=== PATIENT | female | born 1970 | race Caucasian/White ===

== ENCOUNTER 2016-04-22 10:25 | Emergency (ER) | payer MEDICARE, MEDICAID ==
[2016-04-22] MEDS ORDERED: OXYCODONE-ACETAMINOPHEN 5-325 MG TABLET PO ONE (10:39)
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
[2016-04-22] MEDS ORDERED: IBUPROFEN 600 MG TABLET PO ONE (11:13)
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
[2016-04-22 11:26] VITALS: BP 132/72
== END 2016-04-22 11:23 | disposition home or self-care (01) ==
LOC: ER 10:25
DX: T20.07XA Burn of unspecified degree of neck, initial encounter (principal); T23.091A Burn of unspecified degree of multiple sites of right wrist and hand, initial encounter; T31.0 Burns involving less than 10% of body surface; X12.XXXA Contact with other hot fluids, initial encounter; I10 Essential (primary) hypertension; Z88.0 Allergy status to penicillin; Z88.1 Allergy status to other antibiotic agents
CPT/HCPCS: 99283; A9270 ×2

== ENCOUNTER 2016-04-28 07:40 | Emergency (ER) | payer MEDICARE, MEDICAID ==
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
[2016-04-28 09:23] VITALS: BP 120/85
== END 2016-04-28 09:10 | disposition home or self-care (01) ==
LOC: ER 07:40
DX: T23.072A Burn of unspecified degree of left wrist, initial encounter (principal); T51.1X1A Toxic effect of methanol, accidental (unintentional), initial encounter; E78.00 Pure hypercholesterolemia, unspecified
CPT/HCPCS: 99283

== ENCOUNTER → 2016-05-20 | Outpatient (CLI) | payer MEDICARE, MEDICAID ==
[2016-05-20 13:00] LABS: HEMATOCRIT 49.6 % (36.0-47.0); HEMOGLOBIN 16.8 g/dL (12.0-15.5); HGB HCT DIFFERENCE 0.8; MEAN CORPUSCULAR HEMOGLOBIN 31.5 pg (27.0-33.4); MEAN CORPUSCULAR HGB CONC 33.9 g/dL (32.0-36.0); MEAN CORPUSCULAR VOLUME 93 fl (80-97); RED BLOOD COUNT 5.32 10^6/uL (3.72-5.28); RED CELL DISTRIBUTION WIDTH 14.3 % (11.5-14.0); WHITE BLOOD COUNT 6.4 10^3/uL (4.0-10.5)
[2016-05-20 13:50] LABS: CHOLESTEROL 399.7 mg/dL (0-200)
[2016-05-21 09:26] LABS: ALANINE AMINOTRANSFERASE 28 U/L (9-52); ALBUMIN 4.7 g/dL (3.5-5.0); ALKALINE PHOSPHATASE 79 U/L (38-126); ANION GAP 15 (5-19); ASPARTATE AMINO TRANSFERASE 29 U/L (14-36); BILIRUBIN,TOTAL 0.8 mg/dL (0.2-1.3); BLOOD UREA NITROGEN 13 mg/dL (7-20); CALCIUM 9.9 mg/dL (8.4-10.2); CARBON DIOXIDE 22 mmol/L (22-30); CHLORIDE 106 mmol/L (98-107); CREATININE RESULT 0.74 mg/dL (0.52-1.25); GLUCOSE 85 mg/dL (75-110); POTASSIUM 4.3 mmol/L (3.6-5.0); SODIUM 142.9 mmol/L (137-145)
== END ==
LOC: OD 11:49
PROVIDERS: ATTEND Psychiatry & Neurology Psychiatry
DX: F33.2 Major depressive disorder, recurrent severe without psychotic features (principal); Z79.899 Other long term (current) drug therapy
CPT/HCPCS: 36415; 80048; 80076; 82465; 83036; 83721; 84439; 84443; 84478; 85027

== ENCOUNTER 2017-01-22 12:13 | Emergency (ER) | payer MEDICARE, MEDICAID ==
[2017-01-22 12:19] VITALS: BP 138/85
[2017-01-22 13:02] LABS: ABSOLUTE EOSINOPHILS # (AUTO) 0.2 10^3/uL (0.0-0.6); ABSOLUTE MONOCYTES (AUTO) 0.4 10^3/uL (0.1-1.4); ABSOLUTE NEUT (AUTO) 5.3 10^3/uL (1.7-8.2); BASOPHILS % (AUTO) 0.4 % (0-2); EOSINOPHILS % (AUTO) 1.9 % (0-6); HEMATOCRIT 40.9 % (36.0-47.0); HEMOGLOBIN 13.8 g/dL (12.0-15.5); HGB HCT DIFFERENCE 0.5; LYMPHOCYTES % (AUTO) 25.1 % (13-45); MEAN CORPUSCULAR HEMOGLOBIN 31.8 pg (27.0-33.4); MEAN CORPUSCULAR HGB CONC 33.8 g/dL (32.0-36.0); MEAN CORPUSCULAR VOLUME 94 fl (80-97); MONOCYTES % (AUTO) 5.3 % (3-13); RED BLOOD COUNT 4.35 10^6/uL (3.72-5.28); RED CELL DISTRIBUTION WIDTH 13.5 % (11.5-14.0); SEGMENTED NEUTROPHILS % (AUTO) 67.3 % (42-78); WHITE BLOOD COUNT 7.9 10^3/uL (4.0-10.5)
[2017-01-22 13:04] LABS: PROTHROMBIN TIME 12.7 SEC (11.4-15.4)
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
[2017-01-22 13:12] LABS: ALANINE AMINOTRANSFERASE 38 U/L (9-52); ALKALINE PHOSPHATASE 51 U/L (38-126); ANION GAP 12 (5-19); ASPARTATE AMINO TRANSFERASE 21 U/L (14-36); BILIRUBIN,DIRECT 0.3 mg/dL (0.0-0.4); BILIRUBIN,TOTAL 0.5 mg/dL (0.2-1.3); BLOOD UREA NITROGEN 13 mg/dL (7-20); CALCIUM 9.2 mg/dL (8.4-10.2); CARBON DIOXIDE 26 mmol/L (22-30); CHLORIDE 107 mmol/L (98-107); CREATININE RESULT 0.61 mg/dL (0.52-1.25); GLUCOSE 71 mg/dL (75-110); SODIUM 144.7 mmol/L (137-145); TOTAL PROTEIN 6.5 g/dL (6.3-8.2)
--- NOTE | 2017-01-22 15:37 | RADIOLOGY REPORT (SQ) ---
EXAM DESCRIPTION: VENOUS UNILATERAL LOWER COMPLETED DATE/TIME: 01/22/2017 3:30 pm REASON FOR STUDY: swelling to LLE after 9+ hr drive COMPARISON: None. TECHNIQUE: Dynamic and static castro scale and color images acquired of the left leg venous system. Se lected spectral images acquired with additional compression and augmentation maneuvers. The contralat eral common femoral vein and saphenofemoral junction were also imaged. Images stored on PACS. LIMITATIONS: None. FINDINGS: COMMON FEMORAL: Normal phasicity, compression and augmentation. No visualized echogenic ma terial on castro scale. No defects on color images. FEMORAL: Normal compression and augmentation. No visualized echogenic material on castro scale. No defe cts on color images. POPLITEAL: Normal compression, augmentation. No visualized echogenic material on castro scale. No defec ts on color images. CALF VESSELS: Normal compression, augmentation. No visualized echogenic material on castro scale. No de fects on color images. GSV and SSV: Normal compression, augmentation. No visualized echogenic material on castro scale. No def ects on color images. ANY DEEP VENOUS INSUFFICIENCY: Not evaluated. ANY EVIDENCE OF POPLITEAL CYST: No. OTHER: No other significant finding. CONTRALATERAL COMMON FEMORAL VEIN AND SAPHENOFEMORAL JUNCTION: Normal phasicity, compression and augmentation. No visualized echogenic material on castro scale. No de fects on color images. IMPRESSION: NO EVIDENCE DVT OR SVT IN THE LEFT LEG. TECHNICAL DOCUMENTATION: JOB ID: [id number] [employer]- All Rights Reserved
--- NOTE | 2017-01-22 15:49 | ER Document Report ---
ED General - General Chief Complaint: Leg Pain Stated Complaint: LEFT KNEE PAIN Time Seen by Provider: 01/22/17 12:26 Mode of Arrival: Ambulatory Information source: Patient Notes: 47-year-old female presents with complaints of left knee pain. Patient notes it has been ongoing for a month after stepping wrong and feeling a popping sensation. Patient has intermittently her knee pops out of place. Patient was seeing orthopedics and getting injections as well as physical therapy but she moved here yesterday. Patient noted swelling in the left leg and knee TRAVEL OUTSIDE OF THE [place] IN LAST 30 DAYS: No - HPI Onset: Other Onset/Duration: Persistent, Worse Quality of pain: Achy Severity: Mild Pain Level: 1 Associated symptoms: Body/muscle aches Exacerbated by: Movement Relieved by: Denies Similar symptoms previously: Yes Recently seen / treated by doctor: Yes - Related Data Allergies/Adverse Reactions: Penicillins Allergy (Severe, Verified 01/22/17 12:18) bacitracin [From Triple Antibiotic] Allergy (Intermediate, Verified 01/22/17 12: 18) bacitracin zinc [From Triple Antibiotic] Allergy (Intermediate, Verified 12:18) colistimethate sodium [From Triple Antibiotic] Allergy (Intermediate, Verified 01/22/17 12:18) gramicidin D [From Triple Antibiotic] Allergy (Intermediate, Verified 01/22/17 12:18) neomycin sulfate [From Triple Antibiotic] Allergy (Intermediate, Verified 12:18) polymyxin B [From Triple Antibiotic] Allergy (Intermediate, Verified 01/22/17 12 :18) polymyxin B sulfate [From Triple Antibiotic] Allergy (Intermediate, Verified 12/01 12:18) pramoxine HCl [From Triple Antibiotic] Allergy (Intermediate, Verified 01/22/17 12:18) Past Medical History - General Information source: Patient - Social History Smoking Status: Former Smoker Cigarette use (# per day): No Chew tobacco use (# tins/day): No Smoking Education Provided: No Frequency of alcohol use: None Drug Abuse: None Family History: Arthritis, CAD, CVA, DM, Hyperlipidemia, Hypertension, Malignancy, Thyroid Disfunction - Past Medical History Cardiac Medical History: Reports: Hx Hypercholesterolemia, Hx Hypertension Pulmonary Medical History: Denies: Hx Asthma, Hx Bronchitis, Hx Pneumonia Neurological Medical History: Reports: Hx Migraine Endocrine Medical History: Reports: Hx Hypothyroidism Renal/ Medical History: Denies: Hx Peritoneal Dialysis Musculoskeltal Medical History: Reports Hx Arthritis, Reports Hx Musculoskeletal Deformity, Reports Hx Musculoskeletal Trauma Skin Medical History: Reports Hx Psoriasis Psychiatric Medical History: Reports: Hx Anxiety, Hx Depression Traumatic Medical History: Reports: Hx Fractures - lt ankle Past Surgical History: Reports: Hx Section, Hx Cholecystectomy, Hx Gastric Bypass Surgery, Hx Hysterectomy, Hx Thyroid Surgery, Hx Tubal Ligation - Immunizations Immunizations up to date: Yes Hx Diphtheria, Pertussis, Tetanus Vaccination: Yes - 2013 Review of Systems - Review of Systems Notes: REVIEW OF SYSTEMS: CONSTITUTIONAL : Denies fever, chills, or sweats. Denies recent illness. EENT: Denies eye, ear, throat, or mouth pain or symptoms. Denies nasal or sinus congestion or discharge. Denies throat, tongue, or mouth swelling or difficulty swallowing. CARDIOVASCULAR: Denies chest pain. Denies palpitations or racing or irregular heart beat. Denies ankle edema. RESPIRATORY: Denies cough, cold, or chest congestion. Denies shortness of breath, difficulty breathing, or wheezing. GASTROINTESTINAL: Denies abdominal pain or distention. Denies nausea, vomiting , or diarrhea. Denies blood in vomitus, stools, or per rectum. Denies black, tarry stools. Denies constipation. GENITOURINARY: Denies difficulty urinating, painful urination, burning, frequency, blood in urine, or discharge. FEMALE GENITOURINARY: Denies vaginal bleeding, heavy or abnormal periods, irregular periods. Denies vaginal discharge or odor. MUSCULOSKELETAL: Admits left knee pain swelling SKIN: Denies rash, lesions or sores. HEMATOLOGIC : Denies easy bruising or bleeding. LYMPHATIC: Denies swollen, enlarged glands. NEUROLOGICAL: Denies confusion or altered mental status. Denies passing out or loss of consciousness. Denies dizziness or lightheadedness. Denies headache. Denies weakness or paralysis or loss of use of either side. Denies problems with gait or speech. Denies sensory loss, numbness, or tingling. Denies seizures. PSYCHIATRIC: Denies anxiety or stress. Denies depression, suicidal ideation, or homicidal ideation. ALL OTHER SYSTEMS REVIEWED AND NEGATIVE. PHYSICAL EXAMINATION: GENERAL: Well-appearing, well-nourished and in no acute distress. HEAD: Atraumatic, normocephalic. EYES: Pupils equal round and reactive to light, extraocular movements intact, conjunctiva are normal. ENT: Nares patent, oropharynx clear without exudates. Moist mucous membranes. NECK: Normal range of motion, supple without lymphadenopathy LUNGS: Breath sounds clear to auscultation bilaterally and equal. No wheezes rales or rhonchi. HEART: Regular rate and rhythm without murmurs ABDOMEN: Soft, nontender, nondistended abdomen. No guarding, no rebound. No masses appreciated. Female : deferred Musculoskeletal: Mild edema of the left knee NEUROLOGICAL: Cranial nerves grossly intact. Normal speech, normal gait. Normal sensory, motor exams PSYCH: Normal mood, normal affect. SKIN: Warm, Dry, normal turgor, no rashes or lesions noted. Dictation was performed using [employer] voice recognition software Physical Exam - Vital signs Vitals: Temp Pulse Resp BP Pulse Ox 98.3 F 84 18 138/85 H 99 01/22/17 12:17 01/22/17 12:17 01/22/17 12:17 01/22/17 12:17 01/22/17 12:17 Course - Re-evaluation Re-evalutation: 01/22/17 15:47 Patient will be started on steroids otherwise well-appearing no distress. Doppler was negative. Patient will be given orthopedic follow-up Patient instructed on risks and benefits of medications prescribed. Denies any concerns regarding such. After performing a Medical Screening Examination, I estimate there is LOW risk for INTRACRANIAL HEMORRHAGE, UNSTABLE SPINE FRACTURE, CENTRAL CORD SYNDROME, CAUDA EQUINA, THORACIC AORTIC DISSECTION, PNEUMOTHORAX, PERFORATED BOWEL, RUPTURED ABDOMINAL AORTIC ANEURYSM, ACUTE TENDON RUPTURE, COMPARTMENT SYNDROME, or OPEN FRACTURE, thus I consider the discharge disposition reasonable. Also, there is no evidence or peritonitis, sepsis, or toxicity. I have reevaluated this patient multiple times and no significant life threatening changes are noted. The patient and I have discussed the diagnosis and risks, and we agree with discharging home to follow-up with their primary doctor with the understanding that symptoms and presentations can change. We also discussed returning to the Emergency Department immediately if new or worsening symptoms occur. We have discussed the symptoms which are most concerning (e.g., bloody stool, fever, changing or worsening pain, vomiting) that necessitate immediate return. - Vital Signs Vital signs: Temp Pulse Resp BP Pulse Ox 98.3 F 84 18 138/85 H 99 01/22/17 12:17 01/22/17 12:17 01/22/17 12:17 01/22/17 12:17 01/22/17 12:17 - Laboratory Result Diagrams: 01/22/17 12:45 01/22/17 12:45 Laboratory results interpreted by me: 01/22/17 12:45 Glucose 71 L - Diagnostic Test Radiology reviewed: Image reviewed, Reports reviewed - No DVT Discharge - Discharge Clinical Impression: Left knee pain Qualifiers: Chronicity: acute Qualified Code(s): M25.562 - Pain in left knee Condition: Stable Disposition: HOME, SELF-CARE Instructions: Suspected Internal Knee Injury ([facility]) Prescriptions: Prednisone [Deltasone 20 mg Tablet] 3 tab PO DAILY 5 Days tablet Referrals: YARITZA STERLING MD [ACTIVE STAFF] - Follow up tomorrow
== END 2017-01-22 16:00 | disposition home or self-care (01) ==
LOC: ER 12:13
DX: M25.562 Pain in left knee (principal); M79.605 Pain in left leg; E78.00 Pure hypercholesterolemia, unspecified; I10 Essential (primary) hypertension; E03.9 Hypothyroidism, unspecified; Z88.0 Allergy status to penicillin; Z88.1 Allergy status to other antibiotic agents; Z87.891 Personal history of nicotine dependence; Z90.49 Acquired absence of other specified parts of digestive tract; Z98.84 Bariatric surgery status; Z90.710 Acquired absence of both cervix and uterus
CPT/HCPCS: 36415; 80053; 85025; 85610; 93971; 99284

== ENCOUNTER 2017-03-11 11:33 | Emergency (ER) | payer MEDICARE, MEDICAID ==
--- NOTE | 2017-03-11 12:10 | ER Document Report ---
HPI - HPI Patient complains to provider of: cough, SOB, n/v Onset: Other Onset/Duration: Persistent Quality of pain: Achy Severity: Mild Pain Level: 2 Context: Patient states she was treated for bronchitis here about 2-1/2 weeks ago. Still has cough and congestion. Complains of shortness of breath but did not get albuterol inhaler filled due to cost. Nausea/vomiting today. Associated Symptoms: Nonproductive cough, Earache, Headache, Sinus pain/drainage , Shortness of breath Exacerbated by: Denies Relieved by: Denies Similar symptoms previously: Yes Recently seen / treated by doctor: Yes - ROS ROS below otherwise negative: Yes Systems Reviewed and Negative: Yes All other systems reviewed and negative - CONSTITUTIONAL Constitutional: DENIES: Fever - EENT EENT: REPORTS: Sore Throat, Ear Pain, Congestion - NEURO Neurology: REPORTS: Headache - CARDIOVASCULAR Cardiovascular: DENIES: Chest pain - RESPIRATORY Respiratory: REPORTS: Trouble Breathing, Coughing - GASTROINTESTINAL Gastrointestinal: DENIES: Abdominal Pain - URINARY Urinary: DENIES: Dysuria - REPRODUCTIVE Reproductive: DENIES: : - MUSCULOSKELETAL Musculoskeletal: DENIES: Extremity pain - DERM Skin Color: Normal Past Medical History - General Information source: Patient - Social History Smoking Status: Never Smoker Frequency of alcohol use: None Drug Abuse: None Lives with: Family Family History: Arthritis, CAD, CVA, DM, Hyperlipidemia, Hypertension, Malignancy, Thyroid Disfunction - Past Medical History Cardiac Medical History: Reports: Hx Hypercholesterolemia, Hx Hypertension Neurological Medical History: Reports: Hx Migraine Endocrine Medical History: Reports: Hx Hypothyroidism Musculoskeltal Medical History: Reports Hx Arthritis, Reports Hx Musculoskeletal Deformity, Reports Hx Musculoskeletal Trauma Skin Medical History: Reports Hx Psoriasis Psychiatric Medical History: Reports: Hx Anxiety, Hx Depression Traumatic Medical History: Reports: Hx Fractures - lt ankle Past Surgical History: Reports: Hx Section, Hx Cholecystectomy, Hx Gastric Bypass Surgery, Hx Hysterectomy, Hx Thyroid Surgery, Hx Tubal Ligation - Immunizations Immunizations up to date: Yes Hx Diphtheria, Pertussis, Tetanus Vaccination: Yes - 2013 Vertical Provider Document - CONSTITUTIONAL Agree With Documented VS: Yes Exam Limitations: No Limitations General Appearance: WD/WN, No Apparent Distress - INFECTION CONTROL TRAVEL OUTSIDE OF THE [place] IN LAST 30 DAYS: No - HEENT HEENT: Atraumatic, Normocephalic Notes: TMs dull bilaterally, throat with mild erythema, no exudates. Patient does have some postnasal drainage. Patient has frequent, dry hacking cough. - NECK Neck: Normal Inspection, Supple - RESPIRATORY Respiratory: Breath Sounds Normal, No Respiratory Distress O2 Sat by Pulse Oximetry: 100 - CARDIOVASCULAR Cardiovascular: Regular Rate, Regular Rhythm - GI/ABDOMEN Gastrointestinal: Abdomen Soft - MUSCULOSKELETAL/EXTREMETIES Musculoskeletal/Extremeties: MAEW - NEURO Level of Consciousness: Awake, Alert, Appropriate - DERM Integumentary: Warm, Dry Course - Re-evaluation Re-evalutation: 03/11/17 14:06 X-rays and urinalysis normal. This was discussed with the patient. - Vital Signs Vital signs: Temp Pulse Resp BP Pulse Ox 98.5 F 67 16 128/88 H 100 03/11/17 11:41 03/11/17 11:41 03/11/17 11:41 03/11/17 11:41 03/11/17 11:41 Discharge - Discharge Clinical Impression: Cough Vomiting alone Qualifiers: Vomiting type: unspecified Vomiting Intractability: non-intractable Qualified Code(s): R11.11 - Vomiting without nausea Condition: Good Disposition: HOME, SELF-CARE Instructions: Acetaminophen, Viral Syndrome ([facility]) Additional Instructions: Continue [id number] cough cold medications for symptom relief Start prednisone taper pack tomorrow as you have had today's dose in the emergency room Other meds as prescribed Inhaler 2 puffs every 4 hours 2 days, then as needed Liquid diet 24 hours, advance as tolerated. Follow-up with your doctor next week for recheck Return if symptoms worsen and as needed Prescriptions: Prednisone [Deltasone 10 mg Tablet] 10 mg PO ASDIR PRN #15 tablet PRN Reason: Promethazine HCl/Codeine [Prometh-Codein 6.25-10 mg/5 ml] 5 ml PO QID PRN #120 syrup PRN Reason:
[2017-03-11] MEDS ORDERED: PREDNISONE 20 MG TABLET PO ONE (12:11)
[2017-03-11] MEDS ORDERED: ONDANSETRON 4 MG TAB.RAPDIS PO ONE (12:11)
[2017-03-11] MEDS ORDERED: ALBUTEROL SULFATE 0.083% NEB 2.5 MG/3 ML AMPUL NEB ONE (12:11)
[2017-03-11 13:23] LABS: APPEARANCE,URINE SLIGHTLY-CLOUDY; BILIRUBIN,URINE NEGATIVE (NEGATIVE); GLUCOSE, URINE NEGATIVE (NEGATIVE); KETONES,URINE NEGATIVE (NEGATIVE); LEUKOCYTE ESTERASE,URINE NEGATIVE (NEGATIVE); NITRITE,URINE NEGATIVE (NEGATIVE); PROTEIN,URINE NEGATIVE (NEGATIVE); URINE SPECIFIC GRAVITY 1.016; UROBILINOGEN,URINE NEGATIVE mg/dL (<2.0)
--- NOTE | 2017-03-11 13:45 | RADIOLOGY REPORT (SQ) ---
EXAM DESCRIPTION: CHEST PA/LAT COMPLETED DATE/TIME: 03/11/2017 1:14 pm REASON FOR STUDY: cough COMPARISON: 02/22/2017. TECHNIQUE: Frontal and lateral radiographic views of the chest acquired. NUMBER OF VIEWS: Two view. LIMITATIONS: None. FINDINGS: LUNGS AND PLEURA: No opacities, masses or pneumothorax. No pleural effusion. MEDIASTINUM AND HILAR STRUCTURES: No masses or contour abnormalities. HEART AND VASCULAR STRUCTURES: Heart normal size. No evidence for failure. BONES: No acute findings. HARDWARE: None in the chest. OTHER: No other significant finding. IMPRESSION: NO SIGNIFICANT RADIOGRAPHIC FINDING IN THE CHEST. TECHNICAL DOCUMENTATION: JOB ID: [id number] [employer]- All Rights Reserved
[2017-03-11] MEDS ORDERED: ALBUTEROL SULFATE HFA (90 MCG/PUFF) 8 GM MDI (1 MDI/ER DISP) IH ONE (13:56)
[2017-03-11 14:29] VITALS: BP 124/82
== END 2017-03-11 14:25 | disposition home or self-care (01) ==
LOC: ER 11:33
DX: R05 Cough (principal); R11.11 Vomiting without nausea; R06.02 Shortness of breath; E78.00 Pure hypercholesterolemia, unspecified; I10 Essential (primary) hypertension; E03.9 Hypothyroidism, unspecified; Z90.49 Acquired absence of other specified parts of digestive tract; Z98.84 Bariatric surgery status; Z90.710 Acquired absence of both cervix and uterus
CPT/HCPCS: 94640; 99284; 81001; 71020; A9270 ×3; J3490; J7512; S0119

== ENCOUNTER 2017-05-18 09:12 | Emergency (ER) | payer MEDICARE, MEDICAID ==
--- NOTE | 2017-05-18 09:34 | ER Document Report ---
ED Medical Screen (RME) - General Chief Complaint: Nausea/Vomiting/Diarrhea Stated Complaint: FEVER,COUGH Time Seen by Provider: 05/18/17 09:25 Mode of Arrival: Ambulatory Information source: Patient TRAVEL OUTSIDE OF THE [place] IN LAST 30 DAYS: No - HPI Patient complains to provider of: Nausea vomiting diarrhea last 3 days Notes: 05/18/17 09:33 39-year-old female presents emergency department with the above chief complaint. She states she has been unable to keep anything in her body for the last 3 days.She has a history of hypertension Which she states resolved after her gastric sleeve Surgery. Patient's also had hysterectomy and cholecystectomy. No flu shot this year as per the patient.She also has a history hypothyroid. - Related Data Allergies/Adverse Reactions: Penicillins Allergy (Severe, Verified 02/22/17 11:49) bacitracin [From Triple Antibiotic] Allergy (Intermediate, Verified 02/22/17 11: 49) bacitracin zinc [From Triple Antibiotic] Allergy (Intermediate, Verified 11:49) colistimethate sodium [From Triple Antibiotic] Allergy (Intermediate, Verified 02/22/17 11:49) gramicidin D [From Triple Antibiotic] Allergy (Intermediate, Verified 02/22/17 11:49) neomycin sulfate [From Triple Antibiotic] Allergy (Intermediate, Verified 11:49) polymyxin B [From Triple Antibiotic] Allergy (Intermediate, Verified 02/22/17 11 :49) polymyxin B sulfate [From Triple Antibiotic] Allergy (Intermediate, Verified 12/01 11:49) pramoxine HCl [From Triple Antibiotic] Allergy (Intermediate, Verified 02/22/17 11:49) Past Medical History - Social History Chew tobacco use (# tins/day): No Frequency of alcohol use: None Drug Abuse: None - Past Medical History Cardiac Medical History: Reports: Hx Hypercholesterolemia, Hx Hypertension Pulmonary Medical History: Denies: Hx Asthma, Hx Bronchitis, Hx Pneumonia Neurological Medical History: Reports: Hx Migraine Endocrine Medical History: Reports: Hx Hypothyroidism Renal/ Medical History: Denies: Hx Peritoneal Dialysis Musculoskeltal Medical History: Reports Hx Arthritis, Reports Hx Musculoskeletal Deformity, Reports Hx Musculoskeletal Trauma Skin Medical History: Reports Hx Psoriasis Psychiatric Medical History: Reports: Hx Anxiety, Hx Depression Traumatic Medical History: Reports: Hx Fractures - lt ankle Past Surgical History: Reports: Hx Section, Hx Cholecystectomy, Hx Gastric Bypass Surgery, Hx Hysterectomy, Hx Thyroid Surgery, Hx Tubal Ligation - Immunizations Immunizations up to date: Yes Hx Diphtheria, Pertussis, Tetanus Vaccination: Yes - 2013 History of Influenza Vaccine for 01/2017 - 06/2017 Season: No Physical Exam - Vital signs Vitals: Temp Pulse Resp BP Pulse Ox 97.8 F 72 16 137/83 H 100 05/18/17 09:19 05/18/17 09:19 05/18/17 09:19 05/18/17 09:19 05/18/17 09:19 Course - Vital Signs Vital signs: Temp Pulse Resp BP Pulse Ox 97.8 F 72 16 137/83 H 100 05/18/17 09:19 05/18/17 09:19 05/18/17 09:19 05/18/17 09:19 05/18/17 09:19
[2017-05-18 10:01] LABS: ABSOLUTE BASOPHILS # (AUTO) 0.1 10^3/uL (0.0-0.2); ABSOLUTE EOSINOPHILS # (AUTO) 0.2 10^3/uL (0.0-0.6); ABSOLUTE LYMPHOCYTES (AUTO) 1.9 10^3/uL (0.5-4.7); ABSOLUTE MONOCYTES (AUTO) 0.3 10^3/uL (0.1-1.4); ABSOLUTE NEUT (AUTO) 2.7 10^3/uL (1.7-8.2); BASOPHILS % (AUTO) 1.3 % (0-2); EOSINOPHILS % (AUTO) 3.6 % (0-6); HEMATOCRIT 40.5 % (36.0-47.0); HEMOGLOBIN 13.8 g/dL (12.0-15.5); LYMPHOCYTES % (AUTO) 36.8 % (13-45); MEAN CORPUSCULAR HEMOGLOBIN 32.9 pg (27.0-33.4); MEAN CORPUSCULAR VOLUME 97 fl (80-97); PLATELET COUNT 268 10^3/uL (150-450); RED BLOOD COUNT 4.19 10^6/uL (3.72-5.28); RED CELL DISTRIBUTION WIDTH 12.9 % (11.5-14.0); SEGMENTED NEUTROPHILS % (AUTO) 52.3 % (42-78); TOTAL CELLS COUNTED % (AUTO) 100 %; WHITE BLOOD COUNT 5.1 10^3/uL (4.0-10.5)
[2017-05-18 10:07] LABS: APPEARANCE,URINE CLOUDY; BILIRUBIN,URINE NEGATIVE (NEGATIVE); COLOR,URINE YELLOW; GLUCOSE, URINE NEGATIVE (NEGATIVE); KETONES,URINE NEGATIVE (NEGATIVE); LEUKOCYTE ESTERASE,URINE SMALL (NEGATIVE); NITRITE,URINE NEGATIVE (NEGATIVE); PROTEIN,URINE NEGATIVE (NEGATIVE); UROBILINOGEN,URINE NEGATIVE mg/dL (<2.0)
[2017-05-18 10:16] LABS: ALANINE AMINOTRANSFERASE 16 U/L (9-52); ALBUMIN 4.2 g/dL (3.5-5.0); ALKALINE PHOSPHATASE 59 U/L (38-126); ANION GAP 10 (5-19); ASPARTATE AMINO TRANSFERASE 17 U/L (14-36); BILIRUBIN,DIRECT 0.1 mg/dL (0.0-0.4); BILIRUBIN,TOTAL 0.5 mg/dL (0.2-1.3); BLOOD UREA NITROGEN 12 mg/dL (7-20); CALCIUM 9.2 mg/dL (8.4-10.2); CARBON DIOXIDE 26 mmol/L (22-30); CHLORIDE 107 mmol/L (98-107); GLUCOSE 79 mg/dL (75-110); POTASSIUM 3.8 mmol/L (3.6-5.0); SODIUM 142.5 mmol/L (137-145); TOTAL PROTEIN 6.8 g/dL (6.3-8.2)
[2017-05-18 10:27] LABS: A TYPE INFLUENZA AG NEGATIVE (NEGATIVE); B INFLUENZA AG NEGATIVE (NEGATIVE)
--- NOTE | 2017-05-18 10:30 | ER Document Report ---
ED General - General Chief Complaint: Nausea/Vomiting/Diarrhea Stated Complaint: FEVER,COUGH Time Seen by Provider: 05/18/17 09:25 Mode of Arrival: Ambulatory TRAVEL OUTSIDE OF THE [place] IN LAST 30 DAYS: No - HPI Notes: Patient is a 47-year-old female with a history of hypothyroidism and chronic back pain who presents to the ED complaining of having nausea, vomiting, and diarrhea over the last 4 days. Patient states that she was not able to keep many solids or liquids down throughout her illness until last evening. Patient states that she is able to keep her dinner down without any difficulties. Patient states that over the last day or 2 she started developing nasal congestion/discharge, body ache, subjective fever, and an occasional dry nonproductive cough. Patient states that she is urinating normally otherwise. Patient has not noticed any melena or hematochezia. She has not been using any [id number] cold medicines for her symptoms aside from Tylenol. Denies any headache, current fever, neck pain, sore throat, chest pain, palpitations, syncope, shortness of breath, wheeze, dyspnea, abdominal pain, current nausea/ vomiting/diarrhea, urinary retention, dysuria, hematuria, acute back pain, loss of control of bowel or bladder, numbness/tingling, saddle anesthesia, muscle paralysis/weakness, or rash. - Related Data Allergies/Adverse Reactions: Penicillins Allergy (Severe, Verified 02/22/17 11:49) bacitracin [From Triple Antibiotic] Allergy (Intermediate, Verified 02/22/17 11: 49) bacitracin zinc [From Triple Antibiotic] Allergy (Intermediate, Verified 11:49) colistimethate sodium [From Triple Antibiotic] Allergy (Intermediate, Verified 02/22/17 11:49) gramicidin D [From Triple Antibiotic] Allergy (Intermediate, Verified 02/22/17 11:49) neomycin sulfate [From Triple Antibiotic] Allergy (Intermediate, Verified 11:49) polymyxin B [From Triple Antibiotic] Allergy (Intermediate, Verified 02/22/17 11 :49) polymyxin B sulfate [From Triple Antibiotic] Allergy (Intermediate, Verified 12/01 11:49) pramoxine HCl [From Triple Antibiotic] Allergy (Intermediate, Verified 02/22/17 11:49) Past Medical History - General Information source: Patient - Social History Smoking Status: Former Smoker Chew tobacco use (# tins/day): No Frequency of alcohol use: None Drug Abuse: None Family History: Arthritis, CAD, CVA, DM, Hyperlipidemia, Hypertension, Malignancy, Thyroid Disfunction Patient has suicidal ideation: No Patient has homicidal ideation: No - Past Medical History Cardiac Medical History: Reports: Hx Hypercholesterolemia, Hx Hypertension Pulmonary Medical History: Denies: Hx Asthma, Hx Bronchitis, Hx Pneumonia Neurological Medical History: Reports: Hx Migraine Endocrine Medical History: Reports: Hx Hypothyroidism Renal/ Medical History: Denies: Hx Peritoneal Dialysis Musculoskeltal Medical History: Reports Hx Arthritis, Reports Hx Musculoskeletal Deformity, Reports Hx Musculoskeletal Trauma Skin Medical History: Reports Hx Psoriasis Psychiatric Medical History: Reports: Hx Anxiety, Hx Depression Traumatic Medical History: Reports: Hx Fractures - lt ankle Past Surgical History: Reports: Hx Section, Hx Cholecystectomy, Hx Gastric Bypass Surgery, Hx Hysterectomy, Hx Thyroid Surgery, Hx Tubal Ligation - Immunizations Immunizations up to date: Yes Hx Diphtheria, Pertussis, Tetanus Vaccination: Yes - 2013 Review of Systems - Review of Systems -: Yes All other systems reviewed and negative Physical Exam - Vital signs Vitals: Temp Pulse Resp BP Pulse Ox 97.8 F 72 16 137/83 H 100 05/18/17 09:19 05/18/17 09:19 05/18/17 09:19 05/18/17 09:19 05/18/17 09:19 - Notes Notes: PHYSICAL EXAMINATION: GENERAL: Well-appearing, well-nourished and in no acute distress. A&Ox4. Answers questions appropriately. Moving in no apparent distress. HEAD: Atraumatic, normocephalic. EYES: Pupils equal round and reactive to light, extraocular movements intact, sclera anicteric, conjunctiva are normal. ENT: EAC clear b/l. TM's intact b/l without erythema, fluid, or perforation. Nares patent and with clear discharge. oropharynx mild erythema without exudates. 1+ tonsilar hypertrophy without erythema or exudate. No palatine shift. Uvula midline. No tongue protrusion. No drooling, hoarseness, or airway compromise. Moist mucous membranes. No sinus tenderness. NECK: Normal range of motion, supple without lymphadenopathy. No rigidity/ meningismus. LUNGS: Breath sounds clear to auscultation bilaterally and equal. No wheezes rales or rhonchi. HEART: Regular rate and rhythm without murmurs, rubs, gallops. ABDOMEN: Soft, nontender, nondistended abdomen. No guarding, no rebound. No masses appreciated. Normal bowel sounds present. No CVA tenderness bilaterally. Obese. NEUROLOGICAL: Normal speech, normal gait. Normal sensory, motor exams PSYCH: Normal mood, normal affect. SKIN: Warm, Dry, normal turgor, no rashes or lesions noted. Course - Re-evaluation Re-evalutation: 05/18/17 10:31 Patient is an afebrile, well-hydrated, 39-year-old female who presents to the ED with acute URI, suspect viral. Vitals are stable. PE is otherwise unremarkable. Patient's GI symptoms have since resolved starting last night. CBC, CMP, urinalysis, rapid influenza were all unremarkable for any acute pathology. Patient is tolerating p.o. without any difficulties. Low suspicion for any meningitis, sepsis, peritonsillar/pharyngeal abscess, respiratory compromise, Pato's, acute abdomen, or other emergent systemic condition at this time. Patient is aware this condition can change from initial presentation and she needs to monitor symptoms closely. I will send her home with a prescription for Zofran that she may use as needed. Conservative measures otherwise for symptoms. Recheck with your PCM in 3-5 days. Return to the ED with any worsening/concerning symptoms otherwise as reviewed in discharge. Patient is in agreement. - Vital Signs Vital signs: Temp Pulse Resp BP Pulse Ox 97.8 F 72 16 137/83 H 100 05/18/17 09:19 05/18/17 09:19 05/18/17 09:19 05/18/17 09:19 05/18/17 09:19 - Laboratory Result Diagrams: 05/18/17 09:44 05/18/17 09:44 Laboratory results interpreted by me: 05/18/17 09:44 Ur Leukocyte Esterase SMALL H Discharge - Discharge Clinical Impression: Acute URI, Gastroenteritis Condition: Stable Disposition: HOME, SELF-CARE Instructions: Antinausea Medication ([facility]), Gastroenteritis (adult) ([facility]), Upper Respiratory Illness ([facility]) Additional Instructions: Maintain adequate fluid and food intake [place] diet ([employer] Bananas, rice, apples, toast, etc Zofran as needed tylenol if needed Monitor for any worsening symptoms OTC medications as needed for cold symptoms and diarrhea/nausea Make sure you are staying hydrated enough to urinate and have normal BM's Recheck with your PCM in 3-5 days Consider consult with Gastroenterology for ongoing/worsening symptoms Return to the ED with any worsening symptoms and/or development of fever, headache, chest pain, palpitations, syncope, shortness of breath, trouble breathing, abdominal pain, n/v/d, blood in stool/urine, weakness, or other worsening symptoms that are concerning to you. Prescriptions: Ondansetron [Zofran Odt 4 mg Tablet] 1 - 2 tab PO Q4H PRN #15 tab.rapdis PRN Reason: For Nausea/Vomiting Forms: Elevated Blood Pressure Referrals: ADELIA LAM DO [NO LOCAL MD] - Follow up in 3-5 days
[2017-05-18 10:54] VITALS: BP 132/84
== END 2017-05-18 10:58 | disposition home or self-care (01) ==
LOC: ER 09:12
DX: J06.9 Acute upper respiratory infection, unspecified (principal); K52.9 Noninfective gastroenteritis and colitis, unspecified; R11.2 Nausea with vomiting, unspecified; R50.9 Fever, unspecified; R05 Cough; E03.9 Hypothyroidism, unspecified; M54.9 Dorsalgia, unspecified; G89.29 Other chronic pain; R09.81 Nasal congestion; M79.1 Myalgia; Z87.891 Personal history of nicotine dependence
CPT/HCPCS: 36415; 80053; 81001; 85025; 87804; 99284

== ENCOUNTER 2017-07-30 09:09 | Emergency (ER) | payer MEDICARE, MEDICAID ==
--- NOTE | 2017-07-30 09:44 | ER Document Report ---
ED Medical Screen (RME) - General Chief Complaint: Flank Pain Stated Complaint: BACK PAIN Time Seen by Provider: 07/30/17 09:36 Notes: This 47-year-old female patient who is on chronic pain management reports a 3 day history of left flank pain that is actually in the posterior lateral chest area just below the axilla and travels down about two thirds [address] the way down the thoracic wall. It is quite tender to palpate. She thought it may be kidney stones, however she has never had a kidney stone. I have greeted and performed a rapid initial assessment of this patient. A comprehensive ED assessment and evaluation of the patient, analysis of test results and completion of the medical decision making process will be conducted by additional ED providers. TRAVEL OUTSIDE OF THE [place] IN LAST 30 DAYS: No - Related Data Allergies/Adverse Reactions: Penicillins Allergy (Severe, Verified 07/30/17 09:10) bacitracin [From Triple Antibiotic] Allergy (Intermediate, Verified 07/30/17 09: 10) bacitracin zinc [From Triple Antibiotic] Allergy (Intermediate, Verified 09:10) colistimethate sodium [From Triple Antibiotic] Allergy (Intermediate, Verified 07/30/17 09:10) gramicidin D [From Triple Antibiotic] Allergy (Intermediate, Verified 07/30/17 09:10) neomycin sulfate [From Triple Antibiotic] Allergy (Intermediate, Verified 09:10) polymyxin B [From Triple Antibiotic] Allergy (Intermediate, Verified 07/30/17 09 :10) polymyxin B sulfate [From Triple Antibiotic] Allergy (Intermediate, Verified 09:10) pramoxine HCl [From Triple Antibiotic] Allergy (Intermediate, Verified 07/30/17 09:10) Past Medical History - Social History Chew tobacco use (# tins/day): No Frequency of alcohol use: None Drug Abuse: None - Past Medical History Cardiac Medical History: Reports: Hx Hypercholesterolemia, Hx Hypertension Pulmonary Medical History: Denies: Hx Asthma, Hx Bronchitis, Hx Pneumonia Neurological Medical History: Reports: Hx Migraine Endocrine Medical History: Reports: Hx Hypothyroidism Renal/ Medical History: Denies: Hx Peritoneal Dialysis Musculoskeltal Medical History: Reports Hx Arthritis, Reports Hx Musculoskeletal Deformity, Reports Hx Musculoskeletal Trauma Skin Medical History: Reports Hx Psoriasis Psychiatric Medical History: Reports: Hx Anxiety, Hx Depression Traumatic Medical History: Reports: Hx Fractures - lt ankle Past Surgical History: Reports: Hx Section, Hx Cholecystectomy, Hx Gastric Bypass Surgery, Hx Hysterectomy, Hx Thyroid Surgery, Hx Tubal Ligation - Immunizations Immunizations up to date: Yes Hx Diphtheria, Pertussis, Tetanus Vaccination: Yes - 2013 History of Influenza Vaccine for 01/2017 - 06/2017 Season: No Physical Exam - Vital signs Vitals: Temp Pulse Resp BP Pulse Ox 98.0 F 70 18 139/90 H 100 07/30/17 09:13 07/30/17 09:13 07/30/17 09:13 07/30/17 09:13 07/30/17 09:13 Course - Vital Signs Vital signs: Temp Pulse Resp BP Pulse Ox 98.0 F 70 18 139/90 H 100 07/30/17 09:13 07/30/17 09:13 07/30/17 09:13 07/30/17 09:13 07/30/17 09:13
[2017-07-30] MEDS ORDERED: KETOROLAC TROMETHAMINE INJ/PF 30 MG/1 ML SDV IV ONE (10:19)
[2017-07-30] MEDS ORDERED: NORMAL SALINE 1000 ML 1,000 ML IV ONE (10:19)
[2017-07-30 13:10] LABS: AMORPHOUS SEDIMENT,URINE TRACE /HPF; APPEARANCE,URINE SLIGHTLY-CLOUDY; BILIRUBIN,URINE NEGATIVE (NEGATIVE); COLOR,URINE YELLOW; GLUCOSE, URINE NEGATIVE (NEGATIVE); KETONES,URINE NEGATIVE (NEGATIVE); LEUKOCYTE ESTERASE,URINE MODERATE (NEGATIVE); NITRITE,URINE NEGATIVE (NEGATIVE); PROTEIN,URINE NEGATIVE (NEGATIVE); URINE SPECIFIC GRAVITY 1.009; UROBILINOGEN,URINE NEGATIVE mg/dL (<2.0)
[2017-07-30 13:25] LABS: ABSOLUTE EOSINOPHILS # (AUTO) 0.2 10^3/uL (0.0-0.6); ABSOLUTE LYMPHOCYTES (AUTO) 2.4 10^3/uL (0.5-4.7); ABSOLUTE MONOCYTES (AUTO) 0.4 10^3/uL (0.1-1.4); ABSOLUTE NEUT (AUTO) 2.3 10^3/uL (1.7-8.2); BASOPHILS % (AUTO) 0.9 % (0-2); EOSINOPHILS % (AUTO) 3.7 % (0-6); HEMATOCRIT 41.1 % (36.0-47.0); HEMOGLOBIN 13.7 g/dL (12.0-15.5); LYMPHOCYTES % (AUTO) 44.5 % (13-45); MEAN CORPUSCULAR HEMOGLOBIN 30.5 pg (27.0-33.4); MEAN CORPUSCULAR HGB CONC 33.3 g/dL (32.0-36.0); MEAN CORPUSCULAR VOLUME 92 fl (80-97); MONOCYTES % (AUTO) 7.5 % (3-13); PLATELET COUNT 211 10^3/uL (150-450); RED BLOOD COUNT 4.49 10^6/uL (3.72-5.28); RED CELL DISTRIBUTION WIDTH 12.4 % (11.5-14.0); SEGMENTED NEUTROPHILS % (AUTO) 43.4 % (42-78); TOTAL CELLS COUNTED % (AUTO) 100 %; WHITE BLOOD COUNT 5.3 10^3/uL (4.0-10.5)
[2017-07-30 13:35] LABS: ALANINE AMINOTRANSFERASE 25 U/L (9-52); ALBUMIN 4.1 g/dL (3.5-5.0); ALKALINE PHOSPHATASE 66 U/L (38-126); ANION GAP 11 (5-19); ASPARTATE AMINO TRANSFERASE 34 U/L (14-36); BILIRUBIN,DIRECT 0.4 mg/dL (0.0-0.4); BILIRUBIN,TOTAL 0.6 mg/dL (0.2-1.3); BLOOD UREA NITROGEN 13 mg/dL (7-20); CALCIUM 9.4 mg/dL (8.4-10.2); CARBON DIOXIDE 26 mmol/L (22-30); CHLORIDE 106 mmol/L (98-107); GLUCOSE 77 mg/dL (75-110); LIPASE 54.8 U/L (23-300); POTASSIUM 4.3 mmol/L (3.6-5.0); SODIUM 143.3 mmol/L (137-145); TOTAL PROTEIN 7.2 g/dL (6.3-8.2)
[2017-07-30] MEDS ORDERED: CIPROFLOXACIN HCL 500 MG TABLET PO ONE (13:59)
[2017-07-30] MEDS ORDERED: IBUPROFEN 800 MG TABLET PO ONE (13:59)
--- NOTE | 2017-07-30 14:05 | ER Document Report ---
ED GI/ - General Chief Complaint: Flank Pain Stated Complaint: BACK PAIN Time Seen by Provider: 07/30/17 09:36 Mode of Arrival: Ambulatory Information source: Patient Notes: Patient is a 47-year-old female who presents to the ER today for left flank pain 3 days. Patient has a history of recurrent kidney infections, no history of stones. She denies any fever but admits to chills and some sweats at home at night. She has been trying to drink water but states that the pain is getting worse, she has been taking ibuprofen at home. She is on pain management and requests no narcotics today. She denies any hematuria, urinary frequency that is abnormal for her. She states that she usually has urinary frequency and is "on medicine for that." TRAVEL OUTSIDE OF THE [place] IN LAST 30 DAYS: No - Related Data Allergies/Adverse Reactions: Penicillins Allergy (Severe, Verified 07/30/17 09:10) bacitracin [From Triple Antibiotic] Allergy (Intermediate, Verified 07/30/17 09: 10) bacitracin zinc [From Triple Antibiotic] Allergy (Intermediate, Verified 09:10) colistimethate sodium [From Triple Antibiotic] Allergy (Intermediate, Verified 07/30/17 09:10) gramicidin D [From Triple Antibiotic] Allergy (Intermediate, Verified 07/30/17 09:10) neomycin sulfate [From Triple Antibiotic] Allergy (Intermediate, Verified 09:10) polymyxin B [From Triple Antibiotic] Allergy (Intermediate, Verified 07/30/17 09 :10) polymyxin B sulfate [From Triple Antibiotic] Allergy (Intermediate, Verified 09:10) pramoxine HCl [From Triple Antibiotic] Allergy (Intermediate, Verified 07/30/17 09:10) Past Medical History - General Information source: Patient - Social History Smoking Status: Never Smoker Chew tobacco use (# tins/day): No Frequency of alcohol use: None Drug Abuse: None Family History: Arthritis, CAD, CVA, DM, Hyperlipidemia, Hypertension, Malignancy, Thyroid Disfunction Patient has suicidal ideation: No Patient has homicidal ideation: No - Past Medical History Cardiac Medical History: Reports: Hx Hypercholesterolemia, Hx Hypertension Pulmonary Medical History: Denies: Hx Asthma, Hx Bronchitis, Hx Pneumonia Neurological Medical History: Reports: Hx Migraine Endocrine Medical History: Reports: Hx Hypothyroidism Renal/ Medical History: Denies: Hx Peritoneal Dialysis Musculoskeltal Medical History: Reports Hx Arthritis, Reports Hx Musculoskeletal Deformity, Reports Hx Musculoskeletal Trauma Skin Medical History: Reports Hx Psoriasis Psychiatric Medical History: Reports: Hx Anxiety, Hx Depression Traumatic Medical History: Reports: Hx Fractures - lt ankle Past Surgical History: Reports: Hx Section, Hx Cholecystectomy, Hx Gastric Bypass Surgery, Hx Hysterectomy, Hx Thyroid Surgery, Hx Tubal Ligation - Immunizations Immunizations up to date: Yes Hx Diphtheria, Pertussis, Tetanus Vaccination: Yes - 2013 Review of Systems - Review of Systems Constitutional: No symptoms reported EENT: No symptoms reported Cardiovascular: No symptoms reported Respiratory: No symptoms reported Gastrointestinal: No symptoms reported Genitourinary: See HPI Female Genitourinary: No symptoms reported Musculoskeletal: No symptoms reported Skin: No symptoms reported Hematologic/Lymphatic: No symptoms reported Neurological/Psychological: No symptoms reported Physical Exam - Vital signs Vitals: Temp Pulse Resp BP Pulse Ox 98.0 F 70 18 139/90 H 100 07/30/17 09:13 07/30/17 09:13 07/30/17 09:13 07/30/17 09:13 07/30/17 09:13 - Notes Notes: PHYSICAL EXAMINATION: GENERAL: Well-appearing and in no acute distress. HEAD: Atraumatic, normocephalic. EYES: Pupils equal round and reactive to light, extraocular movements intact, sclera anicteric, conjunctiva are normal. NECK: Normal range of motion, supple without lymphadenopathy LUNGS: CTAB and equal. No wheezes rales or rhonchi. HEART: Regular rate and rhythm without murmurs ABDOMEN: Soft, no tenderness. No guarding, no rebound BACK: no vertebral tenderness, normal ROM GI/: Left CVA tenderness EXTREMITIES: Normal range of motion, no pitting edema. No cyanosis. NEUROLOGICAL: Cranial nerves grossly intact. Normal sensory/motor exams. PSYCH: Normal mood, normal affect. SKIN: Warm, Dry, normal turgor, no rashes or lesions noted Course - Re-evaluation Re-evalutation: 07/30/17 14:02 Lab work is unremarkable today including a normal lipase, urinalysis does reveal some blood and moderate leukocytes, I will treat for kidney infection at this time, urine culture is pending. Patient actually looks well and has done very well on Toradol. - Vital Signs Vital signs: Temp Pulse Resp BP Pulse Ox 98.0 F 70 18 139/90 H 100 07/30/17 09:13 07/30/17 09:13 07/30/17 09:13 07/30/17 09:13 07/30/17 09:13 - Laboratory Result Diagrams: 07/30/17 13:00 07/30/17 13:00 Laboratory results interpreted by me: 07/30/17 12:06 Urine Blood SMALL H Ur Leukocyte Esterase MODERATE H Discharge - Discharge Clinical Impression: Left flank pain UTI (urinary tract infection) Qualifiers: Urinary tract infection type: site unspecified Hematuria presence: with hematuria Qualified Code(s): N39.0 - Urinary tract infection, site not specified ; R31.9 - Hematuria, unspecified; R31.9 - Hematuria, unspecified Condition: Stable Disposition: HOME, SELF-CARE Additional Instructions: Return immediately for any new or worsening symptoms. Follow up with primary care provider, call tomorrow to make followup appointment. Drink plenty of fluids Prescriptions: Ciprofloxacin HCl [Cipro 500 mg Tablet] 500 mg PO BID #14 tablet Referrals: ADELIA LAM DO [Primary Care Provider] - Follow up as needed
[2017-07-30 14:34] VITALS: BP 129/83
== END 2017-07-30 14:30 | disposition home or self-care (01) ==
LOC: ER 09:09
DX: N39.0 Urinary tract infection, site not specified (principal); R10.9 Unspecified abdominal pain; I10 Essential (primary) hypertension; R35.0 Frequency of micturition; Z79.899 Other long term (current) drug therapy
CPT/HCPCS: 99284; 96361; 96374; 36415; 83690; 85025; 80053; 81001; A9270 ×2; J1885; J7030

== ENCOUNTER 2017-12-01 11:11 | Emergency (ER) | payer MEDICARE, MEDICAID ==
[2017-12-01] MEDS ORDERED: BACLOFEN 20 MG TABLET PO ONE (11:52)
[2017-12-01] MEDS ORDERED: KETOROLAC TROMETHAMINE 60 MG/2 ML SDV IM ONE (11:52)
--- NOTE | 2017-12-01 11:55 | ER Document Report ---
ED Medical Screen (RME) - General Chief Complaint: Flank Pain Stated Complaint: BACK PAIN Time Seen by Provider: 12/01/17 11:52 Notes: 47 years old female presents today with on and off pain over the left mid zone on the back for the last 4 months. She moved from [place] here, this morning started having the same pain again therefore present to the ED. Denies any dysuria frequency urgency. Sharp tenderness noted over the T11-12 dermatomal pattern. On the left side TRAVEL OUTSIDE OF THE [place] IN LAST 30 DAYS: No - Related Data Allergies/Adverse Reactions: Penicillins Allergy (Severe, Verified 12/01/17 11:18) bacitracin [From Triple Antibiotic] Allergy (Intermediate, Verified 12/01/17 11: 18) bacitracin zinc [From Triple Antibiotic] Allergy (Intermediate, Verified 11:18) colistimethate sodium [From Triple Antibiotic] Allergy (Intermediate, Verified 12/01/17 11:18) gramicidin D [From Triple Antibiotic] Allergy (Intermediate, Verified 12/01/17 11:18) neomycin sulfate [From Triple Antibiotic] Allergy (Intermediate, Verified 11:18) polymyxin B [From Triple Antibiotic] Allergy (Intermediate, Verified 12/01/17 11 :18) polymyxin B sulfate [From Triple Antibiotic] Allergy (Intermediate, Verified 11:18) pramoxine HCl [From Triple Antibiotic] Allergy (Intermediate, Verified 12/01/17 11:18) Past Medical History - Past Medical History Cardiac Medical History: Reports: Hx Hypercholesterolemia, Hx Hypertension Pulmonary Medical History: Denies: Hx Asthma, Hx Bronchitis, Hx Pneumonia Neurological Medical History: Reports: Hx Migraine Endocrine Medical History: Reports: Hx Hypothyroidism Renal/ Medical History: Denies: Hx Peritoneal Dialysis Musculoskeltal Medical History: Reports Hx Arthritis, Reports Hx Musculoskeletal Deformity, Reports Hx Musculoskeletal Trauma Skin Medical History: Reports Hx Psoriasis Psychiatric Medical History: Reports: Hx Anxiety, Hx Depression Traumatic Medical History: Reports: Hx Fractures - lt ankle Past Surgical History: Reports: Hx Section, Hx Cholecystectomy, Hx Gastric Bypass Surgery, Hx Hysterectomy, Hx Thyroid Surgery, Hx Tubal Ligation - Immunizations Immunizations up to date: Yes Hx Diphtheria, Pertussis, Tetanus Vaccination: Yes - 2013 History of Influenza Vaccine for 01/2017 - 06/2017 Season: No Physical Exam - Vital signs Vitals: Temp Pulse Resp BP Pulse Ox 98.9 F 91 16 144/95 H 98 12/01/17 11:21 12/01/17 11:21 12/01/17 11:21 12/01/17 11:21 12/01/17 11:21 Course - Vital Signs Vital signs: Temp Pulse Resp BP Pulse Ox 98.9 F 91 16 144/95 H 98 12/01/17 11:21 12/01/17 11:21 12/01/17 11:21 12/01/17 11:21 12/01/17 11:21 Doctor's Discharge - Discharge Referrals: ADELIA LAM DO [Primary Care Provider] - Follow up as needed
[2017-12-01 12:12] LABS: APPEARANCE,URINE CLEAR; BILIRUBIN,URINE NEGATIVE (NEGATIVE); CALCIUM OXALATE CRYSTALS,URINE RARE /HPF; COLOR,URINE AMBER; GLUCOSE, URINE NEGATIVE (NEGATIVE); KETONES,URINE NEGATIVE (NEGATIVE); LEUKOCYTE ESTERASE,URINE NEGATIVE (NEGATIVE); NITRITE,URINE POSITIVE (NEGATIVE); PROTEIN,URINE NEGATIVE (NEGATIVE); URINE SPECIFIC GRAVITY 1.031
--- NOTE | 2017-12-01 12:42 | RADIOLOGY REPORT (SQ) ---
EXAM DESCRIPTION: T SPINE AP/LAT COMPLETED DATE/TIME: 12/01/2017 12:21 pm REASON FOR STUDY: Back pain COMPARISON: None. NUMBER OF VIEWS: Two views. TECHNIQUE: AP and lateral radiographic images acquired of the thoracic spine. LIMITATIONS: None. FINDINGS: MINERALIZATION: Normal. ALIGNMENT: Normal. No scoliosis. VERTEBRAE: No fracture or bone lesion. Maintained height, normal segmentation. DISCS: Disc space narrowing is present at T11-12 and T12-L1 HARDWARE: None in the spine. MEDIASTINUM AND SOFT TISSUES: Normal heart size and aortic contour. No soft tissue abnormality. VISUALIZED LUNG DUQUE: Clear. OTHER: No other significant finding. IMPRESSION: No acute displaced fracture. TECHNICAL DOCUMENTATION: JOB ID: [id number] [employer]- All Rights Reserved Reading location - IP/workstation name: [email or web address]
--- NOTE | 2017-12-01 12:54 | RADIOLOGY REPORT (SQ) ---
EXAM DESCRIPTION: CT ABD/PELVIS NO ORAL OR IV COMPLETED DATE/TIME: 12/01/2017 12:23 pm REASON FOR STUDY: Stone protocol COMPARISON: CT ABDOMEN PELVIS 12/12/2011 TECHNIQUE: CT scan of the abdomen and pelvis performed without intravenous or oral contrast. Images reviewed with lung, soft tissue, and bone windows. Reconstructed coronal and sagittal MPR images revi ewed. All images stored on PACS. All CT scanners at this facility use dose modulation, iterative reconstruction, and/or weight based d osing when appropriate to reduce radiation dose to as low as reasonably achievable (ALARA). [facility]: Dose Right [facility]: CareDose [facility]: Dose Right [facility]: Teradose 4D [facility]: [employer] RADIATION DOSE: CT Rad equipment meets quality standard of care and radiation dose reduction techniq ues were employed. CTDIvol: 19.1 mGy. DLP: 1088 mGy-cm.mGy. LIMITATIONS: None. FINDINGS: LOWER CHEST: Small hiatal hernia. Lung bases are clear NON-CONTRASTED LIVER, SPLEEN, ADRENALS: Evaluation limited by lack of IV contrast. No identified sign ificant masses. PANCREAS: No masses. No peripancreatic inflammatory changes. GALLBLADDER: Surgically absent RIGHT KIDNEY AND URETER: No suspicious masses. Assessment limited by lack of IV contrast. No signif icant calcifications. No hydronephrosis or hydroureter. LEFT KIDNEY AND URETER: No suspicious masses. Assessment limited by lack of IV contrast. No signifi cant calcifications. No hydronephrosis or hydroureter. AORTA AND RETROPERITONEUM: No aneurysm. No retroperitoneal masses or adenopathy. BOWEL AND PERITONEAL CAVITY: Post gastric sleeve procedure. No CT evidence of bowel obstruction, jorge e intraperitoneal air or fluid. APPENDIX: Normal. PELVIS, BLADDER, AND ABDOMINAL WALL:Post hysterectomy. Normal size ovaries. No free pelvic fluid. Bladder, rectum unremarkable. No adenopathy. BONES: No significant findings. OTHER: No other significant finding. IMPRESSION: Post cholecystectomy, hysterectomy and gastric sleeve procedure No urinary stones, hydronephrosis or hydroureter. COMMENT: Quality ID # [id number]: Final reports with documentation of one or more dose reduction techniques (e.g., Automated exposure control, adjustment of the mA and/or kV according to patient size, use of iterative reconstruction technique) TECHNICAL DOCUMENTATION: JOB ID: [id number]- All Rights Reserved Reading location - IP/workstation name: [facility]FORMATION [facility]NAGEMENT [email or web address]
[2017-12-01] MEDS ORDERED: LIDOCAINE 5% (700 MG) TRANSDERMAL ADH..PATCH TP ONE (13:10)
[2017-12-01] MEDS ORDERED: OXYCODONE-ACETAMINOPHEN 5-325 MG TABLET PO ONE (13:11)
--- NOTE | 2017-12-01 13:12 | ER Document Report ---
HPI - HPI Patient complains to provider of: Back pain Onset: Yesterday Onset/Duration: Persistent Quality of pain: Achy Pain Level: 5 Context: Patient presents complaining of left-sided back pain that radiates around to left side. Patient does report some urinary frequency and took AZO at home for the frequency symptoms. Patient reports nausea but denies any vomiting or diarrhea. Patient denies any fever. Patient denies recent any injury to the back. Associated Symptoms: Nausea, Other - Urinary frequency, back pain. denies: Fever Exacerbated by: Movement Relieved by: Denies Similar symptoms previously: No Recently seen / treated by doctor: No - ROS ROS below otherwise negative: Yes Systems Reviewed and Negative: Yes All other systems reviewed and negative - CONSTITUTIONAL Constitutional: DENIES: Fever - EENT EENT: DENIES: Sore Throat - NEURO Neurology: DENIES: Headache, Weakness - CARDIOVASCULAR Cardiovascular: DENIES: Chest pain - RESPIRATORY Respiratory: DENIES: Trouble Breathing, Coughing - GASTROINTESTINAL Gastrointestinal: REPORTS: Abdominal Pain - Left flank pain radiates aroun - URINARY Urinary: REPORTS: Frequency. DENIES: Dysuria, Urgency - REPRODUCTIVE Reproductive: DENIES: : - MUSCULOSKELETAL Musculoskeletal: REPORTS: Back Pain - DERM Skin Color: Normal Skin Problems: None Past Medical History - General Information source: Patient - Social History Smoking Status: Never Smoker Chew tobacco use (# tins/day): No Frequency of alcohol use: Rare Drug Abuse: None Lives with: Family Family History: Arthritis, CAD, CVA, DM, Hyperlipidemia, Hypertension, Malignancy, Thyroid Disfunction Patient has suicidal ideation: No Patient has homicidal ideation: No - Past Medical History Cardiac Medical History: Reports: Hx Hypercholesterolemia, Hx Hypertension Pulmonary Medical History: Denies: Hx Asthma, Hx Bronchitis, Hx Pneumonia Neurological Medical History: Reports: Hx Migraine Endocrine Medical History: Reports: Hx Hypothyroidism Renal/ Medical History: Denies: Hx Peritoneal Dialysis Musculoskeletal Medical History: Reports Hx Arthritis, Reports Hx Musculoskeletal Deformity, Reports Hx Musculoskeletal Trauma Skin Medical History: Reports Hx Psoriasis Psychiatric Medical History: Reports: Hx Anxiety, Hx Depression Traumatic Medical History: Reports: Hx Fractures - lt ankle Past Surgical History: Reports: Hx Section, Hx Cholecystectomy, Hx Gastric Bypass Surgery, Hx Hysterectomy, Hx Thyroid Surgery, Hx Tubal Ligation - Immunizations Immunizations up to date: Yes Hx Diphtheria, Pertussis, Tetanus Vaccination: Yes - 2013 [facility] Provider Document - CONSTITUTIONAL Agree With Documented VS: Yes Exam Limitations: No Limitations General Appearance: WD/WN, No Apparent Distress - INFECTION CONTROL TRAVEL OUTSIDE OF THE [place] IN LAST 30 DAYS: No - HEENT HEENT: Atraumatic, Normocephalic - NECK Neck: Normal Inspection, Supple - RESPIRATORY Respiratory: Breath Sounds Normal, No Respiratory Distress - CARDIOVASCULAR Cardiovascular: Regular Rate, Regular Rhythm, No Murmur - GI/ABDOMEN Gastrointestinal: Abdomen Tender - left lat side, LUQ - BACK Back: Abnormal Inspection - left thoracolumbar paraspinal tenderness. negative : CVA Tenderness-Right, CVA Tenderness-Left - MUSCULOSKELETAL/EXTREMETIES Musculoskeletal/Extremeties: MAEW, FROM - NEURO Level of Consciousness: Awake, Alert, Appropriate Motor/Sensory: No Motor Deficit - DERM Integumentary: Warm, Dry, No Rash Course - Re-evaluation Re-evalutation: 12/01/17 17:01 Laboratory studies reviewed, patient diagnostic evaluation essentially benign. Patient did have positive nitrites on UA although admits to taking AZO to help with urinary frequency symptoms. Suspect that patient's positive nitrites is a false positive due to the AZO, will add urine culture. Patient does have narrowing vertebral segments is noted on T-spine x-ray on T11 through 12 and T12 -L1. Patient without any acute fracture and denies any recent injury. Will treat for musculoskeletal pain at this time and encourage follow-up with primary care provider for recheck. The patient presents with low back pain without signs of spinal cord compression, cauda equina syndrome, infection, aneurysm, or other serious etiology. The patient is neurologically intact. Given the extremely risk of these diagnoses further testing and evaluation for these possibilities does not appear to be indicated at this time. Patient has been instructed to return if the symptoms worsen or change in any way. - Vital Signs Vital signs: Temp Pulse Resp BP Pulse Ox 98.9 F 91 16 144/95 H 98 12/01/17 11:21 12/01/17 11:21 12/01/17 11:21 12/01/17 11:21 12/01/17 11:21 - Laboratory Result Diagrams: 12/01/17 15:50 12/01/17 15:50 Laboratory results interpreted by me: 12/01/17 11:22 Urine Nitrite POSITIVE H Urine Urobilinogen 4.0 H 12/01/17 17:03 Labs- Entire Visit 12/01/17 12/01/17 12/01/17 11:22 12:10 12:10 WBC Cancelled RBC Cancelled Hgb Cancelled Hct Cancelled MCV Cancelled MCH Cancelled MCHC Cancelled RDW Cancelled Plt Count Cancelled Seg Neutrophils % Cancelled Lymphocytes % Cancelled Monocytes % Cancelled Eosinophils % Cancelled Basophils % Cancelled Absolute Neutrophils Cancelled Absolute Lymphocytes Cancelled Absolute Monocytes Cancelled Absolute Eosinophils Cancelled Absolute Basophils Cancelled Platelet Estimate Cancelled Sodium Cancelled Potassium Cancelled Chloride Cancelled Carbon Dioxide Cancelled Anion Gap Cancelled BUN Cancelled Creatinine Cancelled Est GFR ( Amer) Cancelled Est GFR (Non-Af Amer) Cancelled Glucose Cancelled Calcium Cancelled Total Bilirubin Cancelled Direct Bilirubin Cancelled Neonat Total Bilirubin Cancelled Neonat Direct Bilirubin Cancelled Neonat Indirect Bili Cancelled AST Cancelled ALT Cancelled Alkaline Phosphatase Cancelled Total Protein Cancelled Albumin Cancelled Urine Color TJ Urine Appearance CLEAR Urine pH 5.0 Ur Specific [place] 1.031 Urine Protein NEGATIVE Urine Glucose (UA) NEGATIVE Urine Ketones NEGATIVE Urine Blood NEGATIVE Urine Nitrite POSITIVE H Urine Bilirubin NEGATIVE Urine Urobilinogen 4.0 H Ur Leukocyte Esterase NEGATIVE Urine WBC (Auto) 2 Urine RBC (Auto) 1 Urine Bacteria (Auto) 1+ Squamous Epi Cells Auto 14 Calcium Oxalate Cr Auto RARE Urine Mucus (Auto) MANY Urine Ascorbic Acid NEGATIVE Slides for Path Review Cancelled 12/01/17 12/01/17 15:50 15:50 WBC 5.5 RBC 4.60 Hgb 14.2 Hct 42.2 MCV 92 MCH 30.9 MCHC 33.7 RDW 14.0 Plt Count 226 Seg Neutrophils % 48.5 Lymphocytes % 41.2 Monocytes % 6.6 Eosinophils % 3.0 Basophils % 0.7 Absolute Neutrophils 2.7 Absolute Lymphocytes 2.3 Absolute Monocytes 0.4 Absolute Eosinophils 0.2 Absolute Basophils 0.0 Platelet Estimate Sodium 141.6 Potassium 4.1 Chloride 107 Carbon Dioxide 22 Anion Gap 13 BUN 14 Creatinine 0.64 Est GFR ( Amer) > 60 Est GFR (Non-Af Amer) > 60 Glucose 82 Calcium 9.1 Total Bilirubin 0.6 Direct Bilirubin 0.2 Neonat Total Bilirubin Not Reportable Neonat Direct Bilirubin Not Reportable Neonat Indirect Bili Not Reportable AST 15 ALT 26 Alkaline Phosphatase 76 Total Protein 6.6 Albumin 3.9 Urine Color Urine Appearance Urine pH Ur Specific [place] Urine Protein Urine Glucose (UA) Urine Ketones Urine Blood Urine Nitrite Urine Bilirubin Urine Urobilinogen Ur Leukocyte Esterase Urine WBC (Auto) Urine RBC (Auto) Urine Bacteria (Auto) Squamous Epi Cells Auto Calcium Oxalate Cr Auto Urine Mucus (Auto) Urine Ascorbic Acid Slides for Path Review - Diagnostic Test Radiology reviewed: Reports reviewed Discharge - Discharge Clinical Impression: left side pain Back pain Qualifiers: Back pain location: back pain in unspecified location Chronicity: unspecified Back pain laterality: left Qualified Code(s): M54.9 - Dorsalgia, unspecified Condition: Stable Disposition: HOME, SELF-CARE Instructions: Ice Packs ([facility]), Low Back Pain ([facility]), Oral Narcotic Medication ( [facility]) Additional Instructions: Return immediately for any new or worsening symptoms Followup with your primary care provider, call tomorrow to make a followup appointment Prescriptions: Oxycodone HCl/Acetaminophen [Percocet 5-325 mg Tablet] 1 tab PO ASDIR PRN #10 tablet PRN Reason: Referrals: ADELIA LAM DO [Primary Care Provider] - 12/04/17
[2017-12-01 16:08] LABS: ABSOLUTE EOSINOPHILS # (AUTO) 0.2 10^3/uL (0.0-0.6); ABSOLUTE LYMPHOCYTES (AUTO) 2.3 10^3/uL (0.5-4.7); ABSOLUTE MONOCYTES (AUTO) 0.4 10^3/uL (0.1-1.4); ABSOLUTE NEUT (AUTO) 2.7 10^3/uL (1.7-8.2); BASOPHILS % (AUTO) 0.7 % (0-2); HEMATOCRIT 42.2 % (36.0-47.0); HEMOGLOBIN 14.2 g/dL (12.0-15.5); LYMPHOCYTES % (AUTO) 41.2 % (13-45); MEAN CORPUSCULAR HEMOGLOBIN 30.9 pg (27.0-33.4); MEAN CORPUSCULAR HGB CONC 33.7 g/dL (32.0-36.0); MEAN CORPUSCULAR VOLUME 92 fl (80-97); MONOCYTES % (AUTO) 6.6 % (3-13); PLATELET COUNT 226 10^3/uL (150-450); SEGMENTED NEUTROPHILS % (AUTO) 48.5 % (42-78); TOTAL CELLS COUNTED % (AUTO) 100 %; WHITE BLOOD COUNT 5.5 10^3/uL (4.0-10.5)
[2017-12-01 16:20] LABS: ALANINE AMINOTRANSFERASE 26 U/L (9-52); ALBUMIN 3.9 g/dL (3.5-5.0); ALKALINE PHOSPHATASE 76 U/L (38-126); ANION GAP 13 (5-19); ASPARTATE AMINO TRANSFERASE 15 U/L (14-36); BILIRUBIN,DIRECT 0.2 mg/dL (0.0-0.4); BILIRUBIN,TOTAL 0.6 mg/dL (0.2-1.3); BLOOD UREA NITROGEN 14 mg/dL (7-20); CALCIUM 9.1 mg/dL (8.4-10.2); CARBON DIOXIDE 22 mmol/L (22-30); CHLORIDE 107 mmol/L (98-107); GLUCOSE 82 mg/dL (75-110); POTASSIUM 4.1 mmol/L (3.6-5.0); SODIUM 141.6 mmol/L (137-145); TOTAL PROTEIN 6.6 g/dL (6.3-8.2)
[2017-12-01 17:29] VITALS: BP 136/81
== END 2017-12-01 17:29 | disposition home or self-care (01) ==
LOC: ER 11:11
DX: M54.5 Low back pain (principal); R35.0 Frequency of micturition; R11.0 Nausea; R10.812 Left upper quadrant abdominal tenderness; R10.9 Unspecified abdominal pain; I10 Essential (primary) hypertension; Z98.84 Bariatric surgery status
CPT/HCPCS: 99284; 96372; 36415; 87086; 85025; 80053; 81001; 72070; 74176; J1885; A9270 ×2; J3490

== ENCOUNTER 2018-01-09 11:56 | Emergency (ER) | payer MEDICARE, MEDICAID ==
[2018-01-09] MEDS ORDERED: KETOROLAC TROMETHAMINE 60 MG/2 ML SDV IM ONE (13:07)
--- NOTE | 2018-01-09 13:08 | ER Document Report ---
ED Medical Screen (RME) - General Chief Complaint: Low Back Pain Stated Complaint: LEFT SIDE PAIN Time Seen by Provider: 01/09/18 12:26 Notes: 47-year-old female patient emergency department chief complaint of left flank pain. Patient states that she has had this on and off for approximately 6 months. Has had multiple CAT scans. Not getting any better. I have greeted and performed a rapid initial assessment of this patient. A comprehensive ED assessment and evaluation of the patient, analysis of test results and completion of the medical decision making process will be conducted by additional ED providers. TRAVEL OUTSIDE OF THE [place] IN LAST 30 DAYS: No - Related Data Allergies/Adverse Reactions: Penicillins Allergy (Severe, Verified 01/09/18 11:57) bacitracin [From Triple Antibiotic] Allergy (Intermediate, Verified 01/09/18 11: 57) bacitracin zinc [From Triple Antibiotic] Allergy (Intermediate, Verified 11:57) colistimethate sodium [From Triple Antibiotic] Allergy (Intermediate, Verified 01/09/18 11:57) gramicidin D [From Triple Antibiotic] Allergy (Intermediate, Verified 01/09/18 11:57) neomycin sulfate [From Triple Antibiotic] Allergy (Intermediate, Verified 11:57) polymyxin B [From Triple Antibiotic] Allergy (Intermediate, Verified 01/09/18 11 :57) polymyxin B sulfate [From Triple Antibiotic] Allergy (Intermediate, Verified 11:57) pramoxine HCl [From Triple Antibiotic] Allergy (Intermediate, Verified 01/09/18 11:57) Past Medical History - Social History Chew tobacco use (# tins/day): No Frequency of alcohol use: None Drug Abuse: None - Past Medical History Cardiac Medical History: Reports: Hx Hypercholesterolemia, Hx Hypertension - Had a gastric sleeve and lost 80 lbs so patient reports she no longer has. Pulmonary Medical History: Denies: Hx Asthma, Hx Bronchitis, Hx Pneumonia Neurological Medical History: Reports: Hx Migraine Endocrine Medical History: Reports: Hx Hypothyroidism Renal/ Medical History: Denies: Hx Peritoneal Dialysis Musculoskeltal Medical History: Reports Hx Arthritis, Reports Hx Musculoskeletal Deformity, Reports Hx Musculoskeletal Trauma Skin Medical History: Reports Hx Psoriasis Psychiatric Medical History: Reports: Hx Anxiety, Hx Depression Traumatic Medical History: Reports: Hx Fractures - lt ankle Past Surgical History: Reports: Hx Abdominal Surgery - gastric sleeve, Hx Section, Hx Cholecystectomy, Hx Gastric Bypass Surgery, Hx Hysterectomy , Hx Thyroid Surgery, Hx Tubal Ligation - Immunizations Immunizations up to date: Yes Hx Diphtheria, Pertussis, Tetanus Vaccination: Yes - 2013 History of Influenza Vaccine for 01/2017 - 06/2017 Season: No Physical Exam - Vital signs Vitals: Temp Pulse Resp BP Pulse Ox 98.1 F 73 16 149/86 H 99 01/09/18 12:01 01/09/18 12:01 01/09/18 12:01 01/09/18 12:01 01/09/18 12:01 Course - Vital Signs Vital signs: Temp Pulse Resp BP Pulse Ox 98.1 F 73 16 149/86 H 99 01/09/18 12:01 01/09/18 12:01 01/09/18 12:01 01/09/18 12:01 01/09/18 12:01 Doctor's Discharge - Discharge Referrals: ADELIA LAM DO [Primary Care Provider] - Follow up as needed
--- NOTE | 2018-01-09 13:31 | RADIOLOGY REPORT (SQ) ---
EXAM DESCRIPTION: CHEST 2 VIEWS COMPLETED DATE/TIME: 01/09/2018 1:19 pm REASON FOR STUDY: left chest pain COMPARISON: None. EXAM PARAMETERS: NUMBER OF VIEWS: two views TECHNIQUE: Digital Frontal and Lateral radiographic views of the chest acquired. RADIATION DOSE: NA LIMITATIONS: none FINDINGS: LUNGS AND PLEURA: No opacities, masses or pneumothorax. No pleural effusion. MEDIASTINUM AND HILAR STRUCTURES: No masses or contour abnormalities. HEART AND VASCULAR STRUCTURES: Heart normal size. No evidence for failure. BONES: No acute findings. HARDWARE: None in the chest. OTHER: No other significant finding. IMPRESSION: NO ACUTE RADIOGRAPHIC FINDING IN THE CHEST. TECHNICAL DOCUMENTATION: JOB ID: [id number] [employer]- All Rights Reserved Reading location - IP/workstation name: [email or web address]
[2018-01-09 13:56] LABS: AMORPHOUS SEDIMENT,URINE TRACE /HPF; APPEARANCE,URINE CLOUDY; BILIRUBIN,URINE NEGATIVE (NEGATIVE); COLOR,URINE YELLOW; GLUCOSE, URINE NEGATIVE (NEGATIVE); KETONES,URINE NEGATIVE (NEGATIVE); LEUKOCYTE ESTERASE,URINE NEGATIVE (NEGATIVE); NITRITE,URINE NEGATIVE (NEGATIVE); PROTEIN,URINE NEGATIVE (NEGATIVE); URINE SPECIFIC GRAVITY 1.015; UROBILINOGEN,URINE NEGATIVE mg/dL (<2.0)
--- NOTE | 2018-01-09 15:34 | RADIOLOGY REPORT (SQ) ---
EXAM DESCRIPTION: U/S RETROPERITON (RENAL/AORTA) COMPLETED DATE/TIME: 01/09/2018 3:20 pm REASON FOR STUDY: left flank pain COMPARISON: None. TECHNIQUE: Dynamic and static grayscale images acquired of the kidneys and bladder and recorded on P ACS. Additional selected color Doppler and spectral images recorded. LIMITATIONS: None. FINDINGS: RIGHT KIDNEY: Normal size, 10.3 cm. Normal echogenicity. No solid or suspicious masses. No hydronephrosis. No calcifications. LEFT KIDNEY: Normal size, 10.1 cm. Normal echogenicity. No solid or suspicious masses. No hydronephr osis. No calcifications. BLADDER: No masses. OTHER FINDINGS: No other significant finding. IMPRESSION: NORMAL RENAL AND BLADDER ULTRASOUND. TECHNICAL DOCUMENTATION: JOB ID: [id number] [employer]- All Rights Reserved Reading location - IP/workstation name: [email or web address]
--- NOTE | 2018-01-09 16:13 | ER Document Report ---
ED General - General Chief Complaint: Low Back Pain Stated Complaint: LEFT SIDE PAIN Time Seen by Provider: 01/09/18 12:26 Mode of Arrival: Ambulatory Information source: Patient Notes: Patient presents with 3 day history of left sided low back pain and flank pain. Patient reports she has a history of degenerative disc disease and recurrent pulled muscles in her lumbar spine as well as history of renal infections. Patient denies any nausea, vomiting, diarrhea or fever. Patient denies any recent heavy lifting or increased activity. TRAVEL OUTSIDE OF THE [place] IN LAST 30 DAYS: No - Related Data Allergies/Adverse Reactions: Penicillins Allergy (Severe, Verified 01/09/18 11:57) bacitracin [From Triple Antibiotic] Allergy (Intermediate, Verified 01/09/18 11: 57) bacitracin zinc [From Triple Antibiotic] Allergy (Intermediate, Verified 11:57) colistimethate sodium [From Triple Antibiotic] Allergy (Intermediate, Verified 01/09/18 11:57) gramicidin D [From Triple Antibiotic] Allergy (Intermediate, Verified 01/09/18 11:57) neomycin sulfate [From Triple Antibiotic] Allergy (Intermediate, Verified 11:57) polymyxin B [From Triple Antibiotic] Allergy (Intermediate, Verified 01/09/18 11 :57) polymyxin B sulfate [From Triple Antibiotic] Allergy (Intermediate, Verified 11:57) pramoxine HCl [From Triple Antibiotic] Allergy (Intermediate, Verified 01/09/18 11:57) Past Medical History - General Information source: Patient - Social History Smoking Status: Former Smoker Chew tobacco use (# tins/day): No Frequency of alcohol use: None Drug Abuse: None Family History: Arthritis, CAD, CVA, DM, Hyperlipidemia, Hypertension, Malignancy, Thyroid Disfunction Patient has suicidal ideation: No Patient has homicidal ideation: No - Past Medical History Cardiac Medical History: Reports: Hx Hypercholesterolemia, Hx Hypertension - Had a gastric sleeve and lost 80 lbs so patient reports she no longer has. Pulmonary Medical History: Denies: Hx Asthma, Hx Bronchitis, Hx Pneumonia Neurological Medical History: Reports: Hx Migraine Endocrine Medical History: Reports: Hx Hypothyroidism Renal/ Medical History: Denies: Hx Peritoneal Dialysis Musculoskeletal Medical History: Reports Hx Arthritis, Reports Hx Musculoskeletal Deformity, Reports Hx Musculoskeletal Trauma Skin Medical History: Reports Hx Psoriasis Psychiatric Medical History: Reports: Hx Anxiety, Hx Depression Traumatic Medical History: Reports: Hx Fractures - lt ankle Past Surgical History: Reports: Hx Abdominal Surgery - gastric sleeve, Hx Section, Hx Cholecystectomy, Hx Gastric Bypass Surgery, Hx Hysterectomy , Hx Thyroid Surgery, Hx Tubal Ligation - Immunizations Immunizations up to date: Yes Hx Diphtheria, Pertussis, Tetanus Vaccination: Yes - 2013 Review of Systems - Review of Systems Genitourinary: Flank pain Musculoskeletal: Muscle pain -: Yes All other systems reviewed and negative Physical Exam - Vital signs Vitals: Temp Pulse Resp BP Pulse Ox 98.1 F 73 16 149/86 H 99 01/09/18 12:01/09/18 12:01/09/18 12:01/09/18 12:01/09/18 12:01 - Notes Notes: PHYSICAL EXAMINATION: GENERAL: Well-appearing, well-nourished and in no acute distress. HEAD: Atraumatic, normocephalic. EYES: Pupils equal round and reactive to light, extraocular movements intact, conjunctiva are normal. ENT: Nares patent, oropharynx clear without exudates. Moist mucous membranes. NECK: Normal range of motion, supple without lymphadenopathy LUNGS: Breath sounds clear to auscultation bilaterally and equal. No wheezes rales or rhonchi. HEART: Regular rate and rhythm without murmurs ABDOMEN: Soft, nontender, nondistended abdomen. No guarding, no rebound. No masses appreciated. Female : No CVA tenderness on palpation. Musculoskeletal: Normal range of motion, no pitting or edema. No cyanosis. NEUROLOGICAL: Cranial nerves grossly intact. Normal speech, normal gait. Normal sensory, motor exams PSYCH: Normal mood, normal affect. SKIN: Warm, Dry, normal turgor, no rashes or lesions noted. Course - Re-evaluation Re-evalutation: Urinalysis is negative for any infection. Retroperitoneal ultrasound was done of the bilateral kidneys with no acute findings noted. Patient has point tenderness on palpation to the left paraspinous area. Patient has no saddle anesthesia and denies the loss of bowel or bladder. Patient will be given muscle relaxers and analgesics and discharged home with plan to follow-up with her primary care provider. Patient now reports that she has had 3 acute exacerbations of low back pain over the last several months. Patient encouraged to follow-up with her primary care for possible MRI. - Vital Signs Vital signs: Temp Pulse Resp BP Pulse Ox 98.0 F 70 16 145/80 H 100 01/09/18 16:16 01/09/18 16:16 01/09/18 16:16 01/09/18 16:16 01/09/18 16:16 Discharge - Discharge Clinical Impression: Back pain Qualifiers: Back pain location: back pain in unspecified location Chronicity: chronic Back pain laterality: left Qualified Code(s): M54.9 - Dorsalgia, unspecified Condition: Stable Disposition: HOME, SELF-CARE Additional Instructions: LOW BACK PAIN: Three out of every four people will have an episode of disabling back pain during their lifetime. Most commonly the pain is due to straining of the muscles and ligaments in the low back. Usual treatment includes: (1) Rest on a firm surface. Avoid lying on your stomach. (2) Ice pack the painful area. After a few days, gentle heat may be used intermittently to relax the area, or ice packs can be continued. (3) Medication may be needed -- muscle relaxers and antiinflammatory medicines are commonly used. (4) As the back improves, exercises are prescribed to strengthen the back and abdominal muscles. Your doctor will advise you on the proper care for your back at each stage in your recovery. You may be better in a few days -- or healing may take several weeks. If new symptoms of a "herniated disc" (radiation of pain, numbness, or tingling down the back of the leg or weakness in the leg) occur, you should be re-examined. Further testing may be necessary. PAIN MEDICATION INJECTION: You have received an injection of a pain medication. You should experience significant pain relief within 45 minutes. If this injection was a narcotic -- it will impair your judgement, slow your reaction time and make you sleepy (as well as relieve your pain). Narcotics also can cause nausea. You should not drive, work with machinery, or perform any task requiring mental alertness until all effects of the medication are gone -- six to eight hours. Do not take any alcohol, or sedatives, and do not take any other medication without checking with your physician. MUSCLE RELAXERS: Muscle relaxing medications are usually prescribed for acute muscle spasm or injury to the neck and back. They are often combined with antiinflammatory pain medication for increased relief. You may stop the muscle relaxer when the pain and stiffness have improved. Start the medication again if spasms recur. Muscle relaxers may cause drowsiness, especially with the first dose. Do not operate machinery or drive while under the effects of the medication. Most muscle relaxers last up to 24 hours. Do not combine the medication with alcohol. ICE PACKS: Apply ice packs frequently against the painful area. Many different schedules are recommended, such as "20 minutes on, 20 minutes off" or "one hour ice, two hours rest." If you need to work, you may need to go longer between ice treatments. You should plan to have the area ice packed AT LEAST one fourth of the time. The ice should be applied over the wrap, tape, or splint, or over a layer of cloth -- not directly against the skin. Some ice bags have a built-in cloth and can be put directly on the skin. WARM PACKS: After approximately two days, apply gentle heat (such as a heating pad or hot water bottle) for about 20 to 30 minutes about every two hours -- at least four times daily. Warmth and elevation will help you make a more rapid recovery , and will ease the pain considerably. Do not use HOT heat, and never apply heat for longer than 30 minutes. The continuous heat can invisibly damage skin and muscles -- even when no burn is seen on the surface. Damaged muscles can make you MORE sore. FOLLOW-UP CARE: If you have been referred to a physician for follow-up care, call the physician s office for an appointment as you were instructed or within the next two days. If you experience worsening or a significant change in your symptoms, notify the physician immediately or return to the Emergency Department at any time for re-evaluation. Please follow up with your primary care doctor in the next 3-5 days for a follow-up. Should you consider to have acute flareups of your back pain they may want to consider ordering an MRI if this has not previously been done. Please return to the emergency department for worsening of your pain, loss of bowel or bladder or any other symptom that is concerning to you. Prescriptions: Ketorolac Tromethamine [Toradol 10 mg Tablet] 10 mg PO Q6HP PRN #20 tablet PRN Reason: Cyclobenzaprine HCl [Flexeril 10 mg Tablet] 10 mg PO TID #20 tablet Lidocaine [Lidoderm 5% (700 mg) Transdermal Patch] 1 patch TP DAILY #30 adh..patch Referrals: ADELIA LAM DO [NO LOCAL MD] - Follow up as needed
[2018-01-09 16:17] VITALS: BP 145/80
--- NOTE | 2018-01-09 16:57 | EKG REPORT ---
SEVERITY:- NORMAL ECG - SINUS RHYTHM : Confirmed by: Belinda Lipscomb MD 09-Jan-2018 16:57:10
== END 2018-01-09 16:32 | disposition home or self-care (01) ==
LOC: ER 11:56
DX: M54.5 Low back pain (principal); R10.9 Unspecified abdominal pain; Z98.84 Bariatric surgery status; Z88.0 Allergy status to penicillin; Z88.1 Allergy status to other antibiotic agents; Z87.891 Personal history of nicotine dependence; Z87.440 Personal history of urinary (tract) infections
CPT/HCPCS: 93005; 99284; 96372; 81001; 71046; 76770; 93010; J1885

== ENCOUNTER 2018-01-17 09:33 | Emergency (ER) | payer MEDICARE, MEDICAID ==
[2018-01-17] MEDS ORDERED: KETOROLAC TROMETHAMINE 60 MG/2 ML SDV IM ONE (10:12)
[2018-01-17] MEDS ORDERED: LIDOCAINE 5% (700 MG) TRANSDERMAL ADH..PATCH TP ONE (10:12)
[2018-01-17] MEDS ORDERED: DEXAMETHASONE SOD PHOS INJ 10 MG/1 ML VIAL IM ONE (10:12)
--- NOTE | 2018-01-17 10:30 | ER Document Report ---
ED Neck/Back Problem - General Chief Complaint: Back Pain Stated Complaint: BACK PAIN Time Seen by Provider: 01/17/18 10:05 Mode of Arrival: Ambulatory Information source: Patient Notes: 47-year-old female presented to ED for complaint of back pain. She states she was here last week for the same but cannot get into her orthopedic until Monday. She states she was seen Dr. Donaldson for this also. She states she has a past medical history of chronic back pain with degenerative disc disease. Patient is alert and oriented respirations regular and unlabored speaking in full sentences. She states she has had no new injuries, no loss of sensation, no change in bowel or bladder habit. TRAVEL OUTSIDE OF THE [place] IN LAST 30 DAYS: No - HPI Patient complains to provider of: Lower back Onset: Other - Chronic Onset: Chronic Timing: Still present Quality of pain: Sharp Severity: Severe Pain Level: 5 Recent injury: No Associated symptoms: Like prior neck/back pain, Lower back pain. denies: Constipation, Fever, Incontinence, Motor loss, Numbness/tingling, Radiation to arm, Radiation to chest, Radiation to leg, Sensory loss, Sweaty, Unable to urinate, Upper back pain Exacerbated by: Sitting position Relieved by: Nothing Similar symptoms previously: Yes Recently seen / treated by doctor: Yes - Related Data Allergies/Adverse Reactions: Penicillins Allergy (Severe, Verified 01/09/18 11:57) bacitracin [From Triple Antibiotic] Allergy (Intermediate, Verified 01/09/18 11: 57) bacitracin zinc [From Triple Antibiotic] Allergy (Intermediate, Verified 11:57) colistimethate sodium [From Triple Antibiotic] Allergy (Intermediate, Verified 01/09/18 11:57) gramicidin D [From Triple Antibiotic] Allergy (Intermediate, Verified 01/09/18 11:57) neomycin sulfate [From Triple Antibiotic] Allergy (Intermediate, Verified 11:57) polymyxin B [From Triple Antibiotic] Allergy (Intermediate, Verified 01/09/18 11 :57) polymyxin B sulfate [From Triple Antibiotic] Allergy (Intermediate, Verified 11:57) pramoxine HCl [From Triple Antibiotic] Allergy (Intermediate, Verified 01/09/18 11:57) Past Medical History - General Information source: Patient - Social History Smoking Status: Former Smoker Cigarette use (# per day): No Chew tobacco use (# tins/day): No Smoking Education Provided: No Frequency of alcohol use: None Drug Abuse: None Lives with: Family Family History: Arthritis, CAD, CVA, DM, Hyperlipidemia, Hypertension, Malignancy, Thyroid Disfunction Patient has suicidal ideation: No Patient has homicidal ideation: No - Past Medical History Cardiac Medical History: Reports: Hx Hypercholesterolemia, Hx Hypertension - Had a gastric sleeve and lost 80 lbs so patient reports she no longer has. Pulmonary Medical History: Reports: None EENT Medical History: Reports: None Neurological Medical History: Reports: Hx Migraine Endocrine Medical History: Reports: Hx Hypothyroidism Renal/ Medical History: Reports: None Malignancy Medical History: Reports: None GI Medical History: Reports: None Musculoskeletal Medical History: Reports Hx Arthritis, Reports Hx Musculoskeletal Deformity, Reports Hx Musculoskeletal Trauma Skin Medical History: Reports Hx Psoriasis Psychiatric Medical History: Reports: Hx Anxiety, Hx Depression Traumatic Medical History: Reports: Hx Fractures - lt ankle Infectious Medical History: Reports: None Past Surgical History: Reports: Hx Abdominal Surgery - gastric sleeve, Hx Section, Hx Cholecystectomy, Hx Gastric Bypass Surgery, Hx Hysterectomy , Hx Thyroid Surgery, Hx Tubal Ligation - Immunizations Immunizations up to date: Yes Hx Diphtheria, Pertussis, Tetanus Vaccination: Yes - 2013 Review of Systems - Review of Systems Constitutional: No symptoms reported EENT: No symptoms reported Cardiovascular: No symptoms reported Respiratory: No symptoms reported Gastrointestinal: No symptoms reported Genitourinary: No symptoms reported Female Genitourinary: No symptoms reported Musculoskeletal: Back pain, Muscle pain, Muscle stiffness Skin: No symptoms reported Hematologic/Lymphatic: No symptoms reported Neurological/Psychological: No symptoms reported -: Yes All other systems reviewed and negative Physical Exam - Vital signs Vitals: Temp Pulse Resp BP Pulse Ox 99.0 F 93 22 H 138/94 H 98 01/17/18 09:38 10 09:38 01/17/18 09:38 01/17/18 09:38 01/17/18 09:38 Interpretation: Normal - General General appearance: Appears well, Alert - HEENT Head: Normocephalic, Atraumatic Eyes: Normal Pupils: PERRL - Respiratory Respiratory status: No respiratory distress Chest status: Nontender Breath sounds: Normal Chest palpation: Normal - Cardiovascular Rhythm: Regular Heart sounds: Normal auscultation Murmur: No - Abdominal Inspection: Normal Distension: No distension Bowel sounds: Normal Tenderness: Nontender Organomegaly: No organomegaly - Back Back: Normal, Tender. No: Deformity/step-off, CVA tenderness, Vertebra tenderness, Scars, Scoliosis, Wounds - Extremities General upper extremity: Normal inspection, Nontender, Normal color, Normal ROM , Normal temperature General lower extremity: Normal inspection, Nontender, Normal color, Normal ROM , Normal temperature, Normal weight bearing. No: Inder's sign - Neurological Neuro grossly intact: Yes Cognition: Normal Orientation: AAOx4 [place] Coma Scale Eye Opening: Spontaneous [place] Coma Scale Verbal: Oriented Samantha Coma Scale Motor: Obeys Commands [place] Coma Scale Total: 15 Speech: Normal Motor strength normal: LUE, RUE, LLE, RLE Sensory: Normal - Psychological Associated symptoms: Normal affect, Normal mood - Skin Skin Temperature: Warm Skin Moisture: Dry Skin Color: Normal Course - Re-evaluation Re-evalutation: 01/17/18 10:58 After performing a Medical Screening Examination, I estimate there is LOW risk for EXPANDING OR RUPTURED ABDOMINAL AORTIC ANEURYSM, CAUDA EQUINA SYNDROME, EPIDURAL MASS LESION, or HERNIATED DISK CAUSING SEVERE SPINAL STENOSIS, thus I consider the discharge disposition reasonable. I have reevaluated this patient multiple times and no significant life threatening changes are noted. The patient and I have discussed the diagnosis and risks, and we agree with discharging home and close follow-up. We also discussed returning to the Emergency Department immediately if new or worsening symptoms occur with the understanding that symptoms and presentations can change. We have discussed the symptoms which are most concerning (e.g., saddle anesthesia, urinary or bowel incontinence or retention, changing or worsening pain) that necessitate immediate return. - Vital Signs Vital signs: Temp Pulse Resp BP Pulse Ox 98.4 F 75 16 143/86 H 98 01/17/18 10:57 01/17/18 10:57 01/17/18 10:57 01/17/18 10:57 01/17/18 10:57 Discharge - Discharge Clinical Impression: Chronic back pain Qualifiers: Back pain location: low back pain Back pain laterality: right Sciatica presence : without sciatica Qualified Code(s): M54.5 - Low back pain; G89.29 - Other chronic pain; G89.29 - Other chronic pain Condition: Stable Disposition: HOME, SELF-CARE Instructions: Family Physicians / Practices Additional Instructions: Chronic Back Pain Chronic back pain (pain persisting longer than three months) is a common problem. A medical evaluation can look for herniated disc, arthritis, osteoporosis, tumors, and infections. But at least half the time, there's no obvious treatable cause. Anxiety and depression tend to worsen back pain. Ibuprofen or other anti-inflammatory medicine can help. A heating pad, used for 15-20 minutes at a time, can ease pain. For this type of back pain, narcotic medicines should be avoided. Muscle relaxers are rarely helpful unless you're having spasms. Activity is important. Find an aerobic exercise program that your back can tolerate. Too much rest makes back pain worse. Specific back exercises are usually prescribed to strengthen the back and abdominal muscles. Often, a physical therapist can help. Avoid heavy lifting, working while bent over, or standing with both knees straight. Most back pain patients do better with a firm mattress. If new symptoms of a "herniated disc" (radiation of pain, numbness, or tingling down the back of the leg or weakness in the leg) occur, you should be re-examined. Toradol Injection You have been given an injection of ketorolac tromethamine (Toradol). This is an excellent, safe drug for pain control. It also has potent antiinflammatory action. You should have significant pain relief within about one hour. Toradol is not addicting and is non-sedating. It does not interfere with driving or work. Call or return if you develop itching, hives, shortness of breath, or rash. STEROID MEDICATION: You have been given an injection of medicine of the cortisone/steroid class. This medication is used to control inflammation or allergy. It is often continued as a pill for a short period of time, until the acute process subsides. There are usually no side effects from short-term use of cortisone-like medications. Some persons feel an increased sense of well-being and are not sleepy at bedtime. Long-term use of cortisone medications is best avoided, unless required for a severe condition. If your condition does not remit, or relapses after the course of corticosteroid medication, you should consult your physician. Stretching Exercises for the Back The physician has recommended that you begin stretching exercises for your back. These are often used even while the back is painful. However, you should notify the physician if the activities seem to increase your pain. PELVIC TILT: Lie flat on your back with knees bent. Tighten your stomach and buttock muscles so it flattens your lower back against the floor. Hold 10 seconds. Repeat 10 times, twice daily. KNEE RAISE: Lying on the back with knees bent, raise one knee to your chest, then the other. Hold both knees against the chest 10 seconds, then lower one knee at a time. Repeat 10 times, twice daily. PARTIAL TRUNK RAISE: Lie face down, arms at your sides. Keeping your waist on the floor, use your arms raise your chest up. Support yourself on your elbows for 30 seconds. Repeat twice daily, increasing the time to two minutes as you recover. MUSCLE RELAXERS: Muscle relaxing medications are usually prescribed for acute muscle spasm or injury to the neck and back. They are often combined with antiinflammatory pain medication for increased relief. You may stop the muscle relaxer when the pain and stiffness have improved. Start the medication again if spasms recur. Muscle relaxers may cause drowsiness, especially with the first dose. Do not operate machinery or drive while under the effects of the medication. Most muscle relaxers last up to 24 hours. Do not combine the medication with alcohol. ICE PACKS: Apply ice packs frequently against the painful area. Many different schedules are recommended, such as "20 minutes on, 20 minutes off" or "one hour ice, two hours rest." If you need to work, you may need to go longer between ice treatments. You should plan to have the area ice packed AT LEAST one fourth of the time. The ice should be applied over the wrap, tape, or splint, or over a layer of cloth -- not directly against the skin. Some ice bags have a built-in cloth and can be put directly on the skin. WARM PACKS: After approximately two days, apply gentle heat (such as a heating pad or hot water bottle) for about 20 to 30 minutes about every two hours -- at least four times daily. Warmth and elevation will help you make a more rapid recovery , and will ease the pain considerably. Do not use HOT heat, and never apply heat for longer than 30 minutes. The continuous heat can invisibly damage skin and muscles -- even when no burn is seen on the surface. Damaged muscles can make you MORE sore. FOLLOW-UP CARE: If you have been referred to a physician for follow-up care, call the physician s office for an appointment as you were instructed or within the next two days. If you experience worsening or a significant change in your symptoms, notify the physician immediately or return to the Emergency Department at any time for re-evaluation. Prescriptions: Methocarbamol [Robaxin 500 mg Tablet] 500 mg PO BIDP PRN #14 tablet PRN Reason: Forms: Elevated Blood Pressure Referrals: LOCALMD,NO [Primary Care Provider] - Follow up as needed
[2018-01-17 10:33] LABS: APPEARANCE,URINE SLIGHTLY-CLOUDY; BILIRUBIN,URINE NEGATIVE (NEGATIVE); COLOR,URINE STRAW; GLUCOSE, URINE NEGATIVE (NEGATIVE); KETONES,URINE NEGATIVE (NEGATIVE); LEUKOCYTE ESTERASE,URINE NEGATIVE (NEGATIVE); NITRITE,URINE NEGATIVE (NEGATIVE); PROTEIN,URINE NEGATIVE (NEGATIVE); URINE SPECIFIC GRAVITY 1.006; UROBILINOGEN,URINE NEGATIVE mg/dL (<2.0)
[2018-01-17 10:59] VITALS: BP 143/86
== END 2018-01-17 11:00 | disposition home or self-care (01) ==
LOC: ER 09:33
DX: G89.29 Other chronic pain (principal); M54.5 Low back pain; Z98.84 Bariatric surgery status; Z88.0 Allergy status to penicillin; Z88.1 Allergy status to other antibiotic agents
CPT/HCPCS: 99283; 96372; 87086; 81001; J1885; J1100

== ENCOUNTER → 2018-03-12 | Outpatient (CLI) | payer MEDICARE, MEDICAID ==
[2018-03-12 11:27] LABS: ABSOLUTE EOSINOPHILS # (AUTO) 0.2 10^3/uL (0.0-0.6); ABSOLUTE LYMPHOCYTES (AUTO) 1.7 10^3/uL (0.5-4.7); ABSOLUTE MONOCYTES (AUTO) 0.3 10^3/uL (0.1-1.4); ABSOLUTE NEUT (AUTO) 2.9 10^3/uL (1.7-8.2); BASOPHILS % (AUTO) 0.8 % (0-2); EOSINOPHILS % (AUTO) 3.1 % (0-6); HEMATOCRIT 41.1 % (36.0-47.0); HEMOGLOBIN 14.2 g/dL (12.0-15.5); LYMPHOCYTES % (AUTO) 33.6 % (13-45); MEAN CORPUSCULAR HEMOGLOBIN 32.1 pg (27.0-33.4); MEAN CORPUSCULAR HGB CONC 34.5 g/dL (32.0-36.0); MEAN CORPUSCULAR VOLUME 93 fl (80-97); MONOCYTES % (AUTO) 5.4 % (3-13); PLATELET COUNT 217 10^3/uL (150-450); RED BLOOD COUNT 4.41 10^6/uL (3.72-5.28); RED CELL DISTRIBUTION WIDTH 13.2 % (11.5-14.0); SEGMENTED NEUTROPHILS % (AUTO) 57.1 % (42-78); TOTAL CELLS COUNTED % (AUTO) 100 %; WHITE BLOOD COUNT 5.1 10^3/uL (4.0-10.5)
[2018-03-12 11:45] LABS: ALANINE AMINOTRANSFERASE 14 U/L (9-52); ALBUMIN 3.9 g/dL (3.5-5.0); ALKALINE PHOSPHATASE 68 U/L (38-126); ANION GAP 11 (5-19); ASPARTATE AMINO TRANSFERASE 17 U/L (14-36); BILIRUBIN,DIRECT 0.1 mg/dL (0.0-0.4); BILIRUBIN,TOTAL 0.6 mg/dL (0.2-1.3); BLOOD UREA NITROGEN 16 mg/dL (7-20); CALCIUM 9.4 mg/dL (8.4-10.2); CARBON DIOXIDE 26 mmol/L (22-30); CHLORIDE 105 mmol/L (98-107); CHOLESTEROL 213.71 mg/dL (0-200); GLUCOSE 85 mg/dL (75-110); POTASSIUM 4.2 mmol/L (3.6-5.0); SODIUM 142.1 mmol/L (137-145); TOTAL PROTEIN 6.9 g/dL (6.3-8.2); TRIGLYCERIDES 254 mg/dL (<150)
[2018-03-12 11:55] LABS: DIRECT LDL 133 mg/dL (<100)
[2018-03-12 11:58] LABS: VLDL CHOLESTEROL 50.8 mg/dL (10-31)
[2018-03-12 12:01] LABS: FREE T3 3.28 pg/mL (2.77-5.27); FREE T4 (FREE THYROXINE) 1.33 ng/dL (0.78-2.19)
[2018-03-12 12:15] LABS: THYROID STIMULATING HORMONE 2.61 uIU/mL (0.47-4.68)
== END ==
LOC: OD 10:21
PROVIDERS: ATTEND Family Medicine
DX: E03.9 Hypothyroidism, unspecified (principal); E55.9 Vitamin D deficiency, unspecified; E78.2 Mixed hyperlipidemia; I10 Essential (primary) hypertension; F32.3 Major depressive disorder, single episode, severe with psychotic features; F41.9 Anxiety disorder, unspecified; R73.9 Hyperglycemia, unspecified
CPT/HCPCS: 36415; 80053; 80061; 82306; 83036; 84439; 84443; 84481; 85025

== ENCOUNTER → 2018-05-11 | Outpatient (CLI) | payer MEDICARE, MEDICAID ==
--- NOTE | 2018-05-11 13:34 | RADIOLOGY REPORT (SQ) ---
EXAM DESCRIPTION: CHEST PA/LATERAL COMPLETED DATE/TIME: 05/11/2018 1:21 pm REASON FOR STUDY: COUGH COMPARISON: 01/09/2018 EXAM PARAMETERS: NUMBER OF VIEWS: two views TECHNIQUE: Digital Frontal and Lateral radiographic views of the chest acquired. RADIATION DOSE: NA LIMITATIONS: none FINDINGS: LUNGS AND PLEURA: No opacities, masses or pneumothorax. No pleural effusion. MEDIASTINUM AND HILAR STRUCTURES: No masses or contour abnormalities. HEART AND VASCULAR STRUCTURES: Heart normal size. No evidence for failure. BONES: No acute findings. HARDWARE: None in the chest. OTHER: No other significant finding. IMPRESSION: NO SIGNIFICANT RADIOGRAPHIC FINDING IN THE CHEST. TECHNICAL DOCUMENTATION: JOB ID: [id number] [email or web address]- All Rights Reserved Reading location - IP/workstation name: [email or web address]
== END ==
LOC: OD 13:02
PROVIDERS: ATTEND Nurse Practitioner Family
DX: R05 Cough (principal)
CPT/HCPCS: 71046

== ENCOUNTER 2018-06-29 09:02 | Emergency (ER) | payer MEDICARE, MEDICAID ==
--- NOTE | 2018-06-29 10:06 | ER Document Report ---
ED Extremity Problem, Lower - General Chief Complaint: Knee Pain Stated Complaint: LEFT KNEE PAIN Time Seen by Provider: 06/29/18 09:17 Primary Care Provider: YARITZA STERLING MD [ACTIVE STAFF] - Follow up as needed ADELIA LAM DO [Primary Care Provider] - Follow up as needed Mode of Arrival: Ambulatory Information source: Patient Notes: 48-year-old female presents to ED for complaint of left knee pain times 2 days. She states she has a history of a year ago tearing her left ACL and meniscus. She states that she and Dr. Sterling decided that would not be surgery. Patient is morbidly obese at 138 kg and 5 foot 1 inches. Her BMI is 57.5. She has a history of a gastric sleeve thyroidectomy gallbladder and hysterectomy. She has torn her ACL and meniscus on the left had a cholesterol and blood pressure. TRAVEL OUTSIDE OF THE [place] IN LAST 30 DAYS: No - HPI Patient complains to provider of: Pain Location: Knee Occurred: Other - Last year Onset/Duration: Intermittent Quality of pain: Sharp Pain Level: 4 Recent injury: Possibly Associated symptoms: Painful ambulation Exacerbated by: Movement, Walking Relieved by: Nothing - Related Data Allergies/Adverse Reactions: Penicillins Allergy (Severe, Verified 01/09/18 11:57) bacitracin [From Triple Antibiotic] Allergy (Intermediate, Verified 01/09/18 11:57) bacitracin zinc [From Triple Antibiotic] Allergy (Intermediate, Verified 01/09/18 11:57) colistimethate sodium [From Triple Antibiotic] Allergy (Intermediate, Verified 01/09/18 11:57) gramicidin D [From Triple Antibiotic] Allergy (Intermediate, Verified 01/09/18 11:57) neomycin sulfate [From Triple Antibiotic] Allergy (Intermediate, Verified 01/09/18 11:57) polymyxin B [From Triple Antibiotic] Allergy (Intermediate, Verified 01/09/18 11:57) polymyxin B sulfate [From Triple Antibiotic] Allergy (Intermediate, Verified 01/09/18 11:57) pramoxine HCl [From Triple Antibiotic] Allergy (Intermediate, Verified 01/09/18 11:57) Past Medical History - General Information source: Patient - Social History Smoking Status: Never Smoker Chew tobacco use (# tins/day): No Frequency of alcohol use: None Drug Abuse: None Lives with: Family Family History: Arthritis, CAD, CVA, DM, Hyperlipidemia, Hypertension, Malignancy, Thyroid Disfunction Patient has suicidal ideation: No Patient has homicidal ideation: No - Past Medical History Cardiac Medical History: Reports: Hx Hypercholesterolemia, Hx Hypertension - Had a gastric sleeve and lost 80 lbs so patient reports she no longer has. Pulmonary Medical History: Reports: None EENT Medical History: Reports: None Neurological Medical History: Reports: Hx Migraine Endocrine Medical History: Reports: Hx Hypothyroidism Renal/ Medical History: Reports: None Malignancy Medical History: Reports: None GI Medical History: Reports: None Musculoskeletal Medical History: Reports Hx Arthritis, Reports Hx Musculoskeletal Deformity, Reports Hx Musculoskeletal Trauma Skin Medical History: Reports Hx Psoriasis Psychiatric Medical History: Reports: Hx Anxiety, Hx Depression Traumatic Medical History: Reports: Hx Fractures - lt ankle Infectious Medical History: Reports: None Past Surgical History: Reports: Hx Abdominal Surgery - gastric sleeve, Hx Section, Hx Cholecystectomy, Hx Gastric Bypass Surgery, Hx Hysterectomy, Hx Thyroid Surgery, Hx Tubal Ligation - Immunizations Immunizations up to date: Yes Hx Diphtheria, Pertussis, Tetanus Vaccination: Yes - 2013 Review of Systems - Review of Systems Constitutional: No symptoms reported EENT: No symptoms reported Cardiovascular: No symptoms reported Respiratory: No symptoms reported Gastrointestinal: No symptoms reported Genitourinary: No symptoms reported Female Genitourinary: No symptoms reported Musculoskeletal: Joint pain. denies: Joint swelling Skin: No symptoms reported Hematologic/Lymphatic: No symptoms reported Neurological/Psychological: No symptoms reported -: Yes All other systems reviewed and negative Physical Exam - Vital signs Vitals: Temp Pulse Resp BP Pulse Ox 97.7 F 91 18 138/90 H 100 06/29/18 09:14 06/29/18 09:14 06/29/18 09:14 06/29/18 09:14 06/29/18 09:14 Interpretation: Normal - General General appearance: Appears well, Alert - HEENT Head: Normocephalic, Atraumatic Eyes: Normal Pupils: PERRL - Respiratory Respiratory status: No respiratory distress Chest status: Nontender Breath sounds: Normal Chest palpation: Normal - Cardiovascular Rhythm: Regular Heart sounds: Normal auscultation Murmur: No - Abdominal Inspection: Normal Distension: No distension Bowel sounds: Normal Tenderness: Nontender Organomegaly: No organomegaly - Back Back: Normal, Nontender - Extremities General upper extremity: Normal inspection, Nontender, Normal color, Normal ROM, Normal temperature General lower extremity: Normal inspection, Normal color, Normal ROM, Normal temperature. No: Inder's sign Knee: Tender, Pain with ROM, Patellar tendon intact, Tender joint line. No: Abrasion, Deformity, Dislocation, Drawer's test instability, Ecchymosis, Instability, Joint effusion, Laceration, Laxity with varus stress, Popliteal fossa tender, Unable to bear weight - Neurological Neuro grossly intact: Yes Cognition: Normal Orientation: AAOx4 [place] Coma Scale Eye Opening: Spontaneous [place] Coma Scale Verbal: Oriented [place] Coma Scale Motor: Obeys Commands [place] Coma Scale Total: 15 Speech: Normal Motor strength normal: LUE, RUE, LLE, RLE Sensory: Normal - Psychological Associated symptoms: Normal affect, Normal mood - Skin Skin Temperature: Warm Skin Moisture: Dry Skin Color: Normal Course - Vital Signs Vital signs: Temp Pulse Resp BP Pulse Ox 97.9 F 79 21 H 140/86 H 98 06/29/18 11:31 06/29/18 11:31 06/29/18 11:31 06/29/18 11:06/29/18 11:31 - Diagnostic Test Radiology reviewed: Image reviewed, Reports reviewed Procedures - Immobilization Left Knee Time completed: 11:40 Pre-Proc Neuro Vasc Exam: Normal Immobilizer type: Bob wrap, Crutches Performed by: FLO Post-Proc Neuro Vasc Exam: Normal Discharge - Discharge Clinical Impression: degenerative changes to left knee Condition: Stable Disposition: HOME, SELF-CARE Additional Instructions: Arthritis Your symptoms are due to arthritis. Arthritis is an inflammation of the joints. There are many types -- osteoarthritis (due to "wear and tear"), auto- immmune arthritis (such as rheumatoid, lupus, Raymon's, and others), and crystal-induced arthritis (such as gout and pseudogout). The physician's examination, combined with laboratory tests, will determine the cause of your arthritis. All types of arthritis are treated with antiinflammatory medications. Other medication may be required for special types of arthritis, or if your problem does not respond to the antiinflammatory medicine. Local warmth may be helpful. Move the involved joints through the full range of motion daily. Mild exercise is usually still possible for most persons with arthritis (ask your physician). Swimming provides good exercise without damaging the joints. Contact the physician if you are worsening in any way. BOB WRAP: A compression dressing (bob wrap) has been placed. This helps hold the area still. It limits swelling and internal bleeding. The wrap should be comfortably snug -- not tight. You should feel a sense of pressure, but not severe pain under the wrap. Unless the physician tells you otherwise, you can adjust the wrap for comfort. If the wrap causes symptoms suggesting it's too tight -- uncomfortable pressure, swelling or discoloration beyond the wrap, numbness, or severe pain -- you must loosen the wrap. If these symptoms don't resolve promptly, return for re-evaluation. USE OF CRUTCHES: The doctor has recommended that you not bear weight at this time. You will need to use crutches. Adjust the crutches so the tops come to about two inches under the armpit while you are standing upright. Use your hands -- not your armpits -- to support your weight. To get into a chair, support yourself with one crutch on the injured side. Hold the chair with the other hand, then lower yourself while putting all your weight on the good leg. Going up stairs is `good leg up, step up, then bring up crutches and bad l eg.' Down stairs is `bad leg and crutches down, then bring good leg down.' If you develop numbness or swelling in an arm or hand, you are using the crutches incorrectly. Return if you are having any problems with the crutches. ICE & ELEVATION: Apply ice packs frequently against the painful area. Many different schedules are recommended, such as "20 minutes on, 20 minutes off" or "one hour ice, two hours rest." If you need to work, you may need to go longer between ice treatments. You should plan to have the area ice packed AT LEAST one-fourth of the time. The ice should be applied over the wrap, tape, or splint, or over a layer of cloth -- not directly against the skin. Some ice bags have a built-in cloth and can be put directly on the skin. Your injured part should be elevated as much as possible over the next 48 hours. Try to keep the injury above the level of the heart. Avoid use of the injured area. Elevation and rest will decrease the swelling. Your chronic pain management medications as they are prescribed for your pain. Follow-up with orthopedics as soon as possible. Knee Exercise Program It's important to strengthen the muscles around the knee. This protects the injured area and stabilizes a knee that's been loosened by ligament injury. EARLY - Even when motion of the knee is painful (even when wearing a splint), you can begin isometric "quads" exercises. While sitting, hold the knee out, and contract the muscles to stiffen it. It shouldn't be straightened all the way -- stiffen it in a slightly-bent position. Lift the leg and draw a "T" with your foot, up to 100 times. When it becomes easy, add a weight on your foot. LATE - When the doctor advises you, you can begin moving the knee against resistance. The front muscles (quadriceps) are most important. While sitting at a [employer], straighten the knee forcefully while pushing a weight up with your ankle. Start with five to 10 pounds. Do 10 to 20 repetitions, increasing the weight as tolerated. Don't use more weight than is comfortable! Over a few weeks, work up to 35 to 50 pounds. Athletes should try to reach 70 to 90 pounds. FOLLOW-UP CARE: If you have been referred to a physician for follow-up care, call the physicians office for an appointment as you were instructed or within the next two days. If you experience worsening or a significant change in your symptoms, notify the physician immediately or return to the Emergency Department at any time for re-evaluation. Referrals: ADELIA LAM DO [Primary Care Provider] - Follow up as needed YARITZA STERLING MD [ACTIVE STAFF] - Follow up as needed
--- NOTE | 2018-06-29 10:23 | RADIOLOGY REPORT (SQ) ---
EXAM DESCRIPTION: KNEE LEFT 4 VIEW COMPLETED DATE/TIME: 06/29/2018 10:05 am REASON FOR STUDY: pain with straightening COMPARISON: None. NUMBER OF VIEWS: Four views. TECHNIQUE: AP, lateral, and both oblique radiographic images acquired of the left knee. LIMITATIONS: None. FINDINGS: MINERALIZATION: Normal. BONES: No acute fracture or dislocation. No worrisome bone lesions. JOINT: No effusion. Moderate tricompartmental degenerative change, worst in the medial compartment. SOFT TISSUES: No soft tissue swelling. No radio-opaque foreign body. OTHER: No other significant finding. IMPRESSION: No fracture or dislocation of the left knee. Moderate tricompartmental degenerative parisa nge, worst in the medial compartment. TECHNICAL DOCUMENTATION: JOB ID: [id number] [employer]- All Rights Reserved Reading location - IP/workstation name: [email or web address]
[2018-06-29 11:42] VITALS: BP 140/86
== END 2018-06-29 11:43 | disposition home or self-care (01) ==
LOC: ER 09:02
DX: M17.12 Unilateral primary osteoarthritis, left knee (principal); M25.562 Pain in left knee; E66.01 Morbid (severe) obesity due to excess calories; Z68.43 Body mass index [BMI] 50.0-59.9, adult; I10 Essential (primary) hypertension; Z98.84 Bariatric surgery status
CPT/HCPCS: 99283

== ENCOUNTER 2019-02-22 09:52 | Emergency (ER) | payer MEDICAID, MEDICARE ==
[2019-02-22 10:11] VITALS: BP 137/80
--- NOTE | 2019-02-22 10:16 | ER Document Report ---
ED ENT - General Chief Complaint: Drainage from Ear Stated Complaint: EAR PAIN Time Seen by Provider: 02/22/19 10:07 Primary Care Provider: ADELIA LAM DO [Primary Care Provider] - Follow up as needed Mode of Arrival: Ambulatory Information source: Patient Notes: 49-year-old female presented to ED for complaint of right ear pain. She does have sinus drainage and swelling. Ears are clear no signs of infection. Patient states she has had ear drainage since December but the pain is just been for couple days. She does have a cough and cold symptoms. Denies any fevers. She does have a history of high blood pressure. TRAVEL OUTSIDE OF THE [place] IN LAST 30 DAYS: No - HPI Patient complains to provider of: Ear problem, Nose problem Onset: Other - Ear drainage for 3 months pain for 2 days. Onset/Duration: Gradual Context: Recent Illness Location of pain: Ears - Bilateral, Nose, Sinus Associated symptoms: Congestion, Ear pain, Runny nose, Sinus pain, Sinus drainage. denies: Fever Similar symptoms previously: Yes Recently seen / treated by doctor: No - Related Data Allergies/Adverse Reactions: Penicillins Allergy (Severe, Verified 01/09/18 11:57) bacitracin [From Triple Antibiotic] Allergy (Intermediate, Verified 01/09/18 11:57) bacitracin zinc [From Triple Antibiotic] Allergy (Intermediate, Verified 01/09/18 11:57) colistimethate sodium [From Triple Antibiotic] Allergy (Intermediate, Verified 01/09/18 11:57) gramicidin D [From Triple Antibiotic] Allergy (Intermediate, Verified 01/09/18 11:57) neomycin sulfate [From Triple Antibiotic] Allergy (Intermediate, Verified 01/09/18 11:57) polymyxin B [From Triple Antibiotic] Allergy (Intermediate, Verified 01/09/18 11:57) polymyxin B sulfate [From Triple Antibiotic] Allergy (Intermediate, Verified 01/09/18 11:57) pramoxine HCl [From Triple Antibiotic] Allergy (Intermediate, Verified 01/09/18 11:57) Past Medical History - General Information source: Patient - Social History Smoking Status: Never Smoker Frequency of alcohol use: None Drug Abuse: None Family History: Arthritis, CAD, CVA, DM, Hyperlipidemia, Hypertension, Malignancy, Thyroid Disfunction - Past Medical History Cardiac Medical History: Reports: Hx Hypercholesterolemia, Hx Hypertension - Had a gastric sleeve and lost 80 lbs so patient reports she no longer has. Pulmonary Medical History: Reports: None EENT Medical History: Reports: None Neurological Medical History: Reports: Hx Migraine Endocrine Medical History: Reports: Hx Hypothyroidism Renal/ Medical History: Reports: None Malignancy Medical History: Reports: None GI Medical History: Reports: None Musculoskeletal Medical History: Reports Hx Arthritis, Reports Hx Musculoskeletal Deformity, Reports Hx Musculoskeletal Trauma Skin Medical History: Reports Hx Psoriasis Psychiatric Medical History: Reports: Hx Anxiety, Hx Depression Traumatic Medical History: Reports: Hx Fractures - lt ankle Infectious Medical History: Reports: None Past Surgical History: Reports: Hx Abdominal Surgery - gastric sleeve, Hx Section, Hx Cholecystectomy, Hx Gastric Bypass Surgery, Hx Hysterectomy, Hx Thyroid Surgery, Hx Tubal Ligation - Immunizations Immunizations up to date: Yes Hx Diphtheria, Pertussis, Tetanus Vaccination: Yes - November 2018 History of Influenza Vaccine for 01/2019 - 06/2019 Season: Yes - November 2018 Review of Systems - Review of Systems Constitutional: No symptoms reported EENT: Ear pain, Nose discharge, Sinus discharge Cardiovascular: No symptoms reported Respiratory: No symptoms reported Gastrointestinal: No symptoms reported Genitourinary: No symptoms reported Female Genitourinary: No symptoms reported Musculoskeletal: No symptoms reported Skin: No symptoms reported Hematologic/Lymphatic: No symptoms reported Neurological/Psychological: No symptoms reported -: Yes All other systems reviewed and negative Physical Exam - Vital signs Vitals: Temp Pulse Resp BP Pulse Ox 98.7 F 88 20 154/113 H 100 02/22/19 09:57 02/22/19 09:57 02/22/19 09:57 02/22/19 09:57 02/22/19 09:57 Interpretation: Normal - General General appearance: Appears well, Alert - HEENT Head: Normocephalic, Atraumatic Eyes: Normal Pupils: PERRL Ears: Normal External canal: Normal Tympanic membrane: Normal Sinus: Normal Nasal: Purulent discharge, Swelling Mouth/Lips: Normal Mucous membranes: Normal Pharynx: Post nasal drainage Neck: Normal - Respiratory Respiratory status: No respiratory distress Chest status: Nontender Breath sounds: Normal Chest palpation: Normal - Cardiovascular Rhythm: Regular Heart sounds: Normal auscultation Murmur: No - Abdominal Inspection: Normal Distension: No distension Bowel sounds: Normal Tenderness: Nontender Organomegaly: No organomegaly - Back Back: Normal, Nontender - Extremities General upper extremity: Normal inspection, Nontender, Normal color, Normal ROM, Normal temperature General lower extremity: Normal inspection, Nontender, Normal color, Normal ROM, Normal temperature, Normal weight bearing. No: Inder's sign - Neurological Neuro grossly intact: Yes Cognition: Normal Orientation: AAOx4 Vulcan Coma Scale Eye Opening: Spontaneous Samantha Coma Scale Verbal: Oriented Vulcan Coma Scale Motor: Obeys Commands Samantha Coma Scale Total: 15 Speech: Normal Motor strength normal: LUE, RUE, LLE, RLE Sensory: Normal - Psychological Associated symptoms: Normal affect, Normal mood - Skin Skin Temperature: Warm Skin Moisture: Dry Skin Color: Normal Course - Re-evaluation Re-evalutation: 02/22/19 22:27 After performing a Medical Screening Examination, I estimate there is LOW risk for ACUTE CORONARY SYNDROME, RESPIRATORY FAILURE, SEPSIS OR MENINGITIS, thus I consider the discharge disposition reasonable. I have reevaluated this patient multiple times and no significant life threatening changes are noted. The patient and I have discussed the diagnosis and risks, and we agree with discharging home with close follow-up. We also discussed returning to the Emergency Department immediately if new or worsening symptoms occur. We have discussed the symptoms which are most concerning (e.g., changing or worsening pain, trouble swallowing or breathing, neck stiffness, fever) that necessitate immediate return. - Vital Signs Vital signs: Temp Pulse Resp BP Pulse Ox 98.7 F 88 20 137/80 H 100 02/22/19 09:57 02/22/19 09:57 02/22/19 09:57 02/22/19 10:11 02/22/19 09:57 Discharge - Discharge Clinical Impression: Ear pain, right URI (upper respiratory infection) Qualifiers: URI type: unspecified viral URI Qualified Code(s): J06.9 - Acute upper respiratory infection, unspecified Condition: Stable Disposition: HOME, SELF-CARE Additional Instructions: UPPER RESPIRATORY ILLNESS: You have a viral infection of the respiratory passages -- a "cold." This common infection causes nasal congestion, drainage, and often sore throat and cough. It is highly contagious. The disease usually lasts about 10 to 14 days. There is no "cure" for the viral infection -- it must run its course. If there is a complication, such as bacterial infection in the nose, sinuses, middle ear, or bronchial tubes, antibiotics may be required. The antibiotics won't affect the virus. Drink plenty of fluids. A humidifier may help. An expectorant medication or decongestant may make you more comfortable. Use acetaminophen or ibuprofen for fever or aches. See the doctor if fever persists over two days, if there is any significant worsening of your symptoms, or if you simply fail to improve as expected. COUGH-SUPPRESSANT & EXPECTORANT MEDICATION: You are to use a cough medication as needed for relief of symptoms. This medicine is a combination of an expectorant (to make the mucous thinner and more easily "coughed up") and a cough suppressant (to reduce the frequency of coughing). The cough-suppressant medicine is related to narcotics. You may experience mild nausea and sleepiness. Some patients who are very sensitive to narcotics may have stomach pain from this medicine. Taking the medicine with food reduces these side effects. Do not drive or work with machinery until you know how this medicine affects you. The expectorant should have no side effects. Iodine-containing expectorants (such as organidin) should not be taken by persons with active thyroid disease unless approved by your doctor. Call the doctor if you develop shortness of breath, hives, rash, itching, lightheadedness, or severe nausea and vomiting. USE OF ACETAMINOPHEN (Tylenol): Acetaminophen may be taken for pain relief or fever control. It's much safer than aspirin, offering a wider range of "safe" dosages. It is safe during . Some brand names are Tylenol, Panadol, Datril, Anacin 3, Tempra, and Liquiprin. Acetaminophen can be repeated every four hours. The following are maximum recommended dosages: >89 pounds or adults 650 mg to 900 mg Acetaminophen can be repeated every four hours. Maximum dose not to exceed 4000 mg a day. FOLLOW-UP CARE: If you have been referred to a physician for follow-up care, call the physicians office for an appointment as you were instructed or within the next two days. If you experience worsening or a significant change in your symptoms, notify the physician immediately or return to the Emergency Department at any time for re-evaluation. Forms: Elevated Blood Pressure Referrals: ADELIA LAM, DO [Primary Care Provider] - Follow up as needed
== END 2019-02-22 10:20 | disposition home or self-care (01) ==
LOC: ER 09:52
DX: J06.9 Acute upper respiratory infection, unspecified (principal); H92.01 Otalgia, right ear; H92.10 Otorrhea, unspecified ear; R09.81 Nasal congestion; I10 Essential (primary) hypertension; Z98.84 Bariatric surgery status
CPT/HCPCS: 99282

== ENCOUNTER → 2019-03-25 | Outpatient (CLI) | payer MEDICARE, MEDICAID ==
[2019-03-25 09:57] LABS: ABSOLUTE EOSINOPHILS # (AUTO) 0.2 10^3/uL (0.0-0.6); ABSOLUTE LYMPHOCYTES (AUTO) 1.9 10^3/uL (0.5-4.7); ABSOLUTE MONOCYTES (AUTO) 0.3 10^3/uL (0.1-1.4); ABSOLUTE NEUT (AUTO) 1.6 10^3/uL (1.7-8.2); BASOPHILS % (AUTO) 0.9 % (0-2); EOSINOPHILS % (AUTO) 4.5 % (0-6); HEMOGLOBIN 14.1 g/dL (12.0-15.5); MEAN CORPUSCULAR HEMOGLOBIN 30.8 pg (27.0-33.4); MEAN CORPUSCULAR HGB CONC 33.6 g/dL (32.0-36.0); MEAN CORPUSCULAR VOLUME 92 fl (80-97); MONOCYTES % (AUTO) 7.1 % (3-13); PLATELET COUNT 226 10^3/uL (150-450); RED BLOOD COUNT 4.59 10^6/uL (3.72-5.28); RED CELL DISTRIBUTION WIDTH 12.9 % (11.5-14.0); SEGMENTED NEUTROPHILS % (AUTO) 39.5 % (42-78); TOTAL CELLS COUNTED % (AUTO) 100 %
[2019-03-25 10:23] LABS: ALBUMIN 4.1 g/dL (3.5-5.0); ALKALINE PHOSPHATASE 71 U/L (38-126); ANION GAP 10 (5-19); ASPARTATE AMINO TRANSFERASE 25 U/L (14-36); BILIRUBIN,DIRECT 0.1 mg/dL (0.0-0.4); BILIRUBIN,TOTAL 0.5 mg/dL (0.2-1.3); BLOOD UREA NITROGEN 14 mg/dL (7-20); CALCIUM 9.3 mg/dL (8.4-10.2); CARBON DIOXIDE 28 mmol/L (22-30); CHLORIDE 103 mmol/L (98-107); CHOLESTEROL 203.65 mg/dL (0-200); GLUCOSE 88 mg/dL (75-110); POTASSIUM 4.3 mmol/L (3.6-5.0); TOTAL PROTEIN 7.1 g/dL (6.3-8.2); TRIGLYCERIDES 285 mg/dL (<150)
[2019-03-25 10:34] LABS: DIRECT LDL 105 mg/dL (<100)
[2019-03-25 10:35] LABS: FREE T4 (FREE THYROXINE) 1.91 ng/dL (0.78-2.19)
[2019-03-25 10:53] LABS: THYROID STIMULATING HORMONE < 0.01 uIU/mL (0.47-4.68)
--- NOTE | 2019-03-25 11:02 | RADIOLOGY REPORT (SQ) ---
EXAM DESCRIPTION: LUMBAR SPINE COMPLETE COMPLETED DATE/TIME: 03/25/2019 9:28 am REASON FOR STUDY: OTHER INTERVERTEBRAL DISC DEGENERATION, LUMBAR REGION E03.9 HYPOTHYROIDISM, UNSPE CIFIED E55.9 VITAMIN D DEFICIENCY, UNSPECIFIED E66.01 MORBID (SEVERE) OBESITY DUE TO EXCESS CALORIE S COMPARISON: 2007 NUMBER OF VIEWS: Five views including obliques. TECHNIQUE: AP, lateral, oblique, and sacral radiographic images acquired of the lumbar spine. LIMITATIONS: None. FINDINGS: MINERALIZATION: Normal. SEGMENTATION: Normal. No transitional anatomy. ALIGNMENT: Mild convex left scoliosis. VERTEBRAE: Maintained height. No fracture or worrisome bone lesion. DISCS: Multilevel disc space narrowing with osteophytes. POSTERIOR ELEMENTS: Pedicles and facets are intact. No pars defect or posterior arch defects. Facet arthropathy is present. HARDWARE: None in the spine. PARASPINAL SOFT TISSUES: Normal. PELVIS: Intact as visualized. No fractures or worrisome bone lesions. SI joints intact. OTHER: No other significant finding. IMPRESSION: SPONDYLOSIS WITHOUT BONE LESION OR FRACTURE. TECHNICAL DOCUMENTATION: JOB ID: [id number] [employer]- All Rights Reserved Reading location - IP/workstation name: [email or web address]
== END ==
LOC: OD 08:33
PROVIDERS: ATTEND Nurse Practitioner Family
DX: M51.36 Other intervertebral disc degeneration, lumbar region (principal); M47.896 Other spondylosis, lumbar region; E03.9 Hypothyroidism, unspecified; E55.9 Vitamin D deficiency, unspecified; E66.01 Morbid (severe) obesity due to excess calories; E78.2 Mixed hyperlipidemia
CPT/HCPCS: 36415; 72110; 80053; 80061; 82306; 84439; 84443; 85025

== ENCOUNTER 2019-04-16 16:05 | Emergency (ER) | payer MEDICARE, MEDICAID ==
[2019-04-16 16:17] VITALS: BP 133/73
[2019-04-16] MEDS ORDERED: KETOROLAC TROMETHAMINE 60 MG/2 ML SDV IM ONE (16:44)
[2019-04-16] MEDS ORDERED: DEXAMETHASONE SOD PHOS INJ 10 MG/1 ML VIAL IM ONE (16:44)
--- NOTE | 2019-04-16 16:49 | ER Document Report ---
HPI - HPI Time Seen by Provider: 04/16/19 16:38 Pain Level: 3 Notes: Patient is a 49-year-old female who presents complaint of left low back pain, acute on chronic, that began yesterday. Patient denies any injury or precipitating event. Patient states that the pain will radiate into her left leg. This is not uncommon for her. Patient states that she had an MRI performed today and is scheduled with pain management. She already takes Percocet as well as gabapentin regularly. Bending and twisting make the pain worse as well as ambulating. She is able to eat and drink without difficulty. She is urinating normally and having normal bowel movements. Denies any headache, fever, neck pain, URI, sore throat, chest pain, palpitations, syncope, cough, shortness of breath, wheeze, dyspnea, abdominal pain, nausea/vomiting/diarrhea, urinary retention, dysuria, hematuria, loss of control of bowel or bladder, numbness/tingling, saddle anesthesia, muscle paralysis/weakness, or rash. - ROS Systems Reviewed and Negative: Yes All other systems reviewed and negative - REPRODUCTIVE Reproductive: DENIES: : Past Medical History - Social History Smoking Status: Never Smoker Chew tobacco use (# tins/day): No Frequency of alcohol use: None Drug Abuse: None Family History: Arthritis, CAD, CVA, DM, Hyperlipidemia, Hypertension, Malignancy, Thyroid Disfunction Patient has suicidal ideation: No Patient has homicidal ideation: No - Past Medical History Cardiac Medical History: Reports: Hx Hypercholesterolemia, Hx Hypertension - Had a gastric sleeve and lost 80 lbs so patient reports she no longer has. Neurological Medical History: Reports: Hx Migraine Endocrine Medical History: Reports: Hx Hypothyroidism Renal/ Medical History: Denies: Hx Peritoneal Dialysis Musculoskeletal Medical History: Reports Hx Arthritis, Reports Hx Musculoskeletal Deformity, Reports Hx Musculoskeletal Trauma Skin Medical History: Reports Hx Psoriasis Psychiatric Medical History: Reports: Hx Anxiety, Hx Depression Traumatic Medical History: Reports: Hx Fractures - lt ankle Past Surgical History: Reports: Hx Abdominal Surgery - gastric sleeve, Hx Section, Hx Cholecystectomy, Hx Gastric Bypass Surgery, Hx Hysterectomy, Hx Thyroid Surgery, Hx Tubal Ligation - Immunizations Immunizations up to date: Yes Hx Diphtheria, Pertussis, Tetanus Vaccination: Yes - November 2018 Vertical Provider Document - CONSTITUTIONAL Agree With Documented VS: Yes Notes: PHYSICAL EXAMINATION: GENERAL: Well-appearing, well-nourished and in no acute distress. Morbid obesity. LUNGS: Breath sounds clear to auscultation bilaterally and equal. No wheezes rales or rhonchi. HEART: Regular rate and rhythm without murmurs, rubs, gallops. ABDOMEN: Soft, nontender, nondistended abdomen. No guarding, no rebound. Normal bowel sounds present. No CVA tenderness bilaterally. No pulsatile mass Musculoskeletal: LE's b/l: FROM to passive/active. Strength 5+/5. No deficits noted. No bony tenderness of extremities. Back: FROM to passive/active. Strength 5+/5. No vertebral point tenderness, stepoffs, or deformities. No other bony tenderness, erythema, swelling, or ecchymosis. SLR negative b/l. + tenderness to the left lower L-paraspinal mm. Mild spasming. No SI jt tenderness. No foot drop Extremities: No cyanosis, clubbing, or edema b/l. Peripheral pulses 2+. Capillary refill less than 2 seconds. NEUROLOGICAL: Normal speech, slow, favoring left side gait. Normal sensory, motor exams. Reflexes 2+ b/l. PSYCH: Normal mood, normal affect. SKIN: Warm, Dry, normal turgor, no rashes or lesions noted. - INFECTION CONTROL TRAVEL OUTSIDE OF THE [place] IN LAST 30 DAYS: No Course - Re-evaluation Re-evalutation: 04/16/19 16:47 Patient is an afebrile, well-hydrated, 49yo female who presents to the ED with acute on chronic low back pain. Vitals are acceptable. PE is otherwise unremarkable for any focal neurological deficits. Patient was given Decadron, Toradol, and Lidoderm patch. She has no significant tachycardia, tachypnea, or hypoxia. She is nontoxic-appearing and is tolerating p.o. without difficulties. There are no signs of infection. No other red flag symptoms noted. No other labs or imaging warranted at this time based on H&P. Low suspicion for any meningitis, fracture, expanding/ruptured AAA, cauda equina syndrome, epidural mass lesion/abscess, herniated disc causing severe spinal stenosis, or other systemic infection at this time. Patient is aware that this condition can change from initial presentation and that she needs monitor symptoms closely for any acute changes. I will send her home with a prescription for robaxin and lid oderm. Conservative measures otherwise for symptoms. Recheck with your PCM in 3-5 days. Consider consult with orthopedic/physical therapy. Return to the ED with any worsening/concerning symptoms otherwise as reviewed discharge. Patient is in agreement. - Vital Signs Vital signs: Temp Pulse Resp BP Pulse Ox 98.0 F 79 16 133/73 H 100 04/16/19 16:16 04/16/19 16:16 04/16/19 16:16 04/16/19 16:16 04/16/19 16:16 Discharge - Discharge Clinical Impression: Acute exacerbation of chronic low back pain Condition: Stable Disposition: HOME, SELF-CARE Instructions: Low Back Pain ([facility]), Muscle Relaxers ([facility]) Additional Instructions: Rest, Ice Tylenol/ibuprofen as needed Light stretches daily Strength exercises as able Moist heat and massage may help F/u with your PCP in 3-5 days for a recheck Consider consult(s) with Orthopedics/physical therapy for ongoing/worsening symptoms Keep appointment with specialist as scheduled Return to the ED with any worsening symptoms and/or development of fever, headache, chest pain, palpitations, syncope, shortness of breath, trouble breathing, abdominal pain, n/v/d, blood in stool/urine, loss of control of bowel/bladder, urinary retention, muscle weakness/paralysis, saddle anesthesia, numbness/tingling, or other worsening symptoms that are concerning to you. Prescriptions: Lidocaine [Lidoderm 5% (700 mg) Transdermal Patch] 1 patch TP DAILY #10 adh..patch Methocarbamol [Robaxin 750 mg Tablet] 750 mg PO TID PRN #10 tablet PRN Reason: Forms: Elevated Blood Pressure Referrals: JOHN PAUL BRODERICK NP [Primary Care Provider] - Follow up as needed [facility] [Provider Group] - Follow up as needed
== END 2019-04-16 17:41 | disposition home or self-care (01) ==
LOC: ER 16:05
DX: M54.5 Low back pain (principal); G89.29 Other chronic pain; M79.605 Pain in left leg; Z79.899 Other long term (current) drug therapy; I10 Essential (primary) hypertension
CPT/HCPCS: 99283; 96372; J1885; J1100

== ENCOUNTER → 2019-05-08 | Outpatient (CLI) | payer MEDICARE, MEDICAID ==
[2019-05-08 13:20] LABS: FREE T3 4.19 pg/mL (2.77-5.27); FREE T4 (FREE THYROXINE) 2.59 ng/dL (0.78-2.19)
[2019-05-08 13:39] LABS: THYROID STIMULATING HORMONE < 0.01 uIU/mL (0.47-4.68)
== END ==
LOC: OD 11:36
PROVIDERS: ATTEND Family Medicine
DX: E03.9 Hypothyroidism, unspecified (principal)
CPT/HCPCS: 36415; 84439; 84443; 84481

== ENCOUNTER 2019-05-26 09:50 | Emergency (ER) | payer MEDICARE, MEDICAID ==
[2019-05-26] MEDS ORDERED: KETOROLAC TROMETHAMINE 60 MG/2 ML SDV IM ONE (10:36)
[2019-05-26] MEDS ORDERED: OXYCODONE HCL IR 5 MG TABLET PO ONE (10:37)
--- NOTE | 2019-05-26 10:39 | ER Document Report ---
ED Medical Screen (RME) - General Chief Complaint: Rectal Pain Stated Complaint: KNEE PAIN Time Seen by Provider: 05/26/19 10:26 Primary Care Provider: ADELIA LAM DO [Primary Care Provider] - Follow up as needed Mode of Arrival: Wheelchair Information source: Patient Notes: Patient presents complaining of knee pain for the past 2 days. Patient states she has chronic bilateral knee pain but the left knee has been more severe for the past 2 days. Patient states she is awaiting referral to orthopedics at this time. Patient denies any injury. Patient also complains of rectal pain since yesterday. Patient is unable to look at the area to see what may be causing her symptoms. Patient without any fever. Patient does take chronic pain medication but states she did not take her dose this morning because she was concerned about any possible interactions with what we may give her. I have greeted and performed a rapid initial assessment of this patient. A comprehensive ED assessment and evaluation of the patient, analysis of test results and completion of the medical decision making process will be conducted by additional ED providers. TRAVEL OUTSIDE OF THE [place] IN LAST 30 DAYS: No - Related Data Allergies/Adverse Reactions: Penicillins Allergy (Severe, Verified 05/09/19 14:57) bacitracin [From Triple Antibiotic] Allergy (Intermediate, Verified 05/09/19 14:57) bacitracin zinc [From Triple Antibiotic] Allergy (Intermediate, Verified 05/09/19 14:57) colistimethate sodium [From Triple Antibiotic] Allergy (Intermediate, Verified 05/09/19 14:57) gramicidin D [From Triple Antibiotic] Allergy (Intermediate, Verified 05/09/19 14:57) neomycin sulfate [From Triple Antibiotic] Allergy (Intermediate, Verified 05/09/19 14:57) polymyxin B [From Triple Antibiotic] Allergy (Intermediate, Verified 05/09/19 14:57) polymyxin B sulfate [From Triple Antibiotic] Allergy (Intermediate, Verified 05/09/19 14:57) pramoxine HCl [From Triple Antibiotic] Allergy (Intermediate, Verified 05/09/19 14:57) Bleach (Sodium Hypochlorite) Allergy (Verified 05/09/19 14:57) Past Medical History - Past Medical History Cardiac Medical History: Reports: Hx Hypercholesterolemia, Hx Hypertension - Had a gastric sleeve and lost 80 lbs so patient reports she no longer has. Neurological Medical History: Reports: Hx Migraine Endocrine Medical History: Reports: Hx Hypothyroidism Renal/ Medical History: Denies: Hx Peritoneal Dialysis Musculoskeltal Medical History: Reports Hx Arthritis, Reports Hx Musculoskeletal Deformity, Reports Hx Musculoskeletal Trauma Skin Medical History: Reports Hx Psoriasis Psychiatric Medical History: Reports: Hx Anxiety, Hx Depression Traumatic Medical History: Reports: Hx Fractures - lt ankle Past Surgical History: Reports: Hx Abdominal Surgery - gastric sleeve, Hx Section, Hx Cholecystectomy, Hx Gastric Bypass Surgery, Hx Hysterectomy, Hx Thyroid Surgery, Hx Tubal Ligation - Immunizations Immunizations up to date: Yes Hx Diphtheria, Pertussis, Tetanus Vaccination: Yes - November 2018 Physical Exam - Vital signs Vitals: Temp Pulse Resp BP Pulse Ox 98.1 F 67 18 132/58 H 97 05/26/19 09:58 05/26/19 09:58 05/26/19 09:58 05/26/19 09:58 05/26/19 09:58 - General General appearance: Alert Notes: Morbidly obese, left knee joint tenderness worse to the medial compartment Course - Vital Signs Vital signs: Temp Pulse Resp BP Pulse Ox 98.1 F 67 18 132/58 H 97 05/26/19 09:58 05/26/19 09:58 05/26/19 09:58 05/26/19 09:58 05/26/19 09:58 Doctor's Discharge - Discharge Referrals: ADELIA LAM DO [Primary Care Provider] - Follow up as needed
[2019-05-26] MEDS ORDERED: LIDOCAINE 1% INJ-PF (10 MG/ML) 30 ML SDV INJ ONE (11:02)
--- NOTE | 2019-05-26 11:02 | RADIOLOGY REPORT (SQ) ---
EXAM DESCRIPTION: KNEE LEFT 3 VIEWS COMPLETED DATE/TIME: 05/26/2019 10:51 am REASON FOR STUDY: L knee pain COMPARISON: None. NUMBER OF VIEWS: Three views. TECHNIQUE: AP, lateral, and sunrise patella radiographic images acquired of the left knee. LIMITATIONS: None. FINDINGS: MINERALIZATION: Normal. BONES: Osteophytes medial compartment. JOINT: Joint space narrowing medial and patellofemoral compartments. SOFT TISSUES: No soft tissue swelling. No radio-opaque foreign body. OTHER: No other significant finding. IMPRESSION: Osteoarthritis. TECHNICAL DOCUMENTATION: JOB ID: [id number] [employer]- All Rights Reserved Reading location - IP/workstation name: [email or web address]
--- NOTE | 2019-05-26 11:05 | ER Document Report ---
ED General - General Chief Complaint: Rectal Pain Stated Complaint: KNEE PAIN Time Seen by Provider: 05/26/19 10:26 Primary Care Provider: ADELIA LAM DO [Primary Care Provider] - Follow up as needed Mode of Arrival: Wheelchair Notes: HPI: Very pleasant 49-year-old female who has 2 separate complaints. She states she has had some chronic left knee pain after a meniscal/ACL tear on 5 years ago. She states her last 2 days she has had some increased pain. No recent trauma or falls. No swelling or discoloration of the leg. She does state that it radiates down the back of her leg. She has never had a DVT. She denies any chest pain or shortness of breath. Patient also states she has felt a rectal "bump" starting yesterday with some pain to the rectal region. No recent diarrhea or fevers. No abdominal pain. No history of hemorrhoids. She does have a history of some constipation. No history of inflammatory bowel disease. ROS: See HPI All other review of systems reviewed and otherwise negative Reviewed vital signs and nursing note as charted by RN. PHYSICAL EXAM: CONSTITUTIONAL: Alert and oriented and responds appropriately to questions. Well-appearing; well-nourished HEAD: Normocephalic; atraumatic CARD: Regular rate and rhythm; no murmurs; symmetric distal pulses RESP: Normal chest excursion without splinting or tachypnea; breath sounds clear and equal bilaterally ABD/GI: Normal bowel sounds; very elevated BMI; soft, non-tender; no palpable organomegaly or masses GI/: I did perform a rectal exam with psychiatric rn present showing a large tender thrombosed hemorrhoid at the 9 o'clock position. No other perirectal lesions or fissures present BACK: The back appears normal and is non-tender to palpation EXT: Normal ROM in all joints; no obvious swelling, erythema, or induration of the left knee. Some mild tenderness to the left calf without any obvious swelling or edema present SKIN: No acute lesions noted NEURO: CN 2-12 intact; 5/5 bilateral upper and lower extremity strength with sensation intact to light touch PSYCH: The patient's mood and manner are appropriate. Grooming and personal hygiene are appropriate. TRAVEL OUTSIDE OF THE [place] IN LAST 30 DAYS: No - Related Data Allergies/Adverse Reactions: Penicillins Allergy (Severe, Verified 05/09/19 14:57) bacitracin [From Triple Antibiotic] Allergy (Intermediate, Verified 05/09/19 14:57) bacitracin zinc [From Triple Antibiotic] Allergy (Intermediate, Verified 05/09/19 14:57) colistimethate sodium [From Triple Antibiotic] Allergy (Intermediate, Verified 05/09/19 14:57) gramicidin D [From Triple Antibiotic] Allergy (Intermediate, Verified 05/09/19 14:57) neomycin sulfate [From Triple Antibiotic] Allergy (Intermediate, Verified 05/09/19 14:57) polymyxin B [From Triple Antibiotic] Allergy (Intermediate, Verified 05/09/19 14:57) polymyxin B sulfate [From Triple Antibiotic] Allergy (Intermediate, Verified 05/09/19 14:57) pramoxine HCl [From Triple Antibiotic] Allergy (Intermediate, Verified 05/09/19 14:57) Bleach (Sodium Hypochlorite) Allergy (Verified 05/09/19 14:57) Past Medical History - General Information source: Patient - Social History Smoking Status: Former Smoker Family History: Arthritis, Malignancy, CAD, CVA, DM, Hyperlipidemia, Hypertension, Thyroid Disfunction Patient has suicidal ideation: No Patient has homicidal ideation: No - Past Medical History Cardiac Medical History: Reports: Hx Hypercholesterolemia, Hx Hypertension - Had a gastric sleeve and lost 80 lbs so patient reports she no longer has. Neurological Medical History: Reports: Hx Migraine Endocrine Medical History: Reports: Hx Hypothyroidism Renal/ Medical History: Denies: Hx Peritoneal Dialysis Musculoskeletal Medical History: Reports Hx Arthritis, Reports Hx Musculoskeleta l Deformity, Reports Hx Musculoskeletal Trauma Skin Medical History: Reports Hx Psoriasis Psychiatric Medical History: Reports: Hx Anxiety, Hx Depression Traumatic Medical History: Reports: Hx Fractures - lt ankle Past Surgical History: Reports: Hx Abdominal Surgery - gastric sleeve, Hx Section, Hx Cholecystectomy, Hx Gastric Bypass Surgery, Hx Hysterectomy, Hx Thyroid Surgery, Hx Tubal Ligation - Immunizations Immunizations up to date: Yes Hx Diphtheria, Pertussis, Tetanus Vaccination: Yes - November 2018 Physical Exam - Vital signs Vitals: Temp Pulse Resp BP Pulse Ox 98.1 F 67 18 132/58 H 97 05/26/19 09:58 05/26/19 09:58 05/26/19 09:58 05/26/19 09:58 05/26/19 09:58 Course - Re-evaluation Re-evalutation: 05/26/19 11:04 Given the history and physical we will proceed with an x-ray and Doppler of the left lower extremity to evaluate for clot or fractures. I will also perform a bedside incision and drainage of the thrombosed hemorrhoid for symptomatic relief. Patient is on no blood thinning medications. No history of inflammatory bowel disease. The location of the pain/hemorrhoid is not at a concerning location for IBD. 05/26/19 14:14 X-ray has recorded. Doppler ultrasound negative for clot. I performed a bedside incision and drainage of the thrombosed hemorrhoid with good pain relief and good clot excision. Strict return precautions with sitz bath instructions with orthopedic follow-up has been provided. - Vital Signs Vital signs: Temp Pulse Resp BP Pulse Ox 98.1 F 67 18 132/58 H 97 05/26/19 09:58 05/26/19 09:58 05/26/19 09:58 05/26/19 09:58 05/26/19 09:58 Procedures - Incision and Drainage Buttock Type: Simple Anesthetic type: 1% Lidocaine mL's of anesthetic: 5 Blade size: 11 I&D procedure: Chlorprep applied Incision Method: Incision made by scalpel Notes: 05/26/19 14:14 I performed an elliptical excision of a rectal thrombosed hemorrhoid with good clot evacuation. Discharge - Discharge Clinical Impression: Thrombosed external hemorrhoid Left knee pain Qualifiers: Chronicity: chronic Qualified Code(s): M25.562 - Pain in left knee; G89.29 - Other chronic pain Condition: Good Disposition: HOME, SELF-CARE Additional Instructions: Come back immediately for any increased pain, swelling, weakness or numbness of the knee. Come back also for any increased rectal pain, fevers, or vomiting. Please make sure that you take sits baths as discussed and you can also use some [id number] Preparation H cream. Please make sure that you follow-up with your primary care physician for reassessment of your hemorrhoid as well as orthopedics for your knee. Referrals: ADELIA LAM DO [Primary Care Provider] - Follow up as needed IRINEO MCKEE DO [ACTIVE STAFF] - Follow up as needed
[2019-05-26 14:36] VITALS: BP 123/77
--- NOTE | 2019-05-26 18:03 | XCELERA REPORT ---
[address] [place] [facility] [address] Lower Extremity Venous Evaluation Procedure: Color flow and duplex imaging of the veins of the left lower extremity as well as the right Common Femoral vein. Right Sided Venous Evaluation The right common femoral vein is fully compressible. Spontaneous and phasic flow is present in the right common femoral vein. Left Sided Venous Evaluation Normal vessel filling wall to wall, compression and augmentation as well as Colour flow down to the infrageniculate veins. Interpretation Summary No duplex evidence of DVT or obstruction in the left lower extremity nor in the right Common Femoral vein. Name: SANJAY SINCLAIR Age: 49 yrs Gender: Female : 1970 Patient Status: Preadmit Patient Location: ER Study Date: 05/26/2019 01:41 PM Reason For Study: 38, left Ordering Physician: NISH DAMON Performed By: Abdon العلي : NISH DAMON > Gael Powers
== END 2019-05-26 14:35 | disposition home or self-care (01) ==
LOC: ER 09:50
DX: K64.5 Perianal venous thrombosis (principal); M25.562 Pain in left knee; G89.29 Other chronic pain; Z87.828 Personal history of other (healed) physical injury and trauma; Z87.891 Personal history of nicotine dependence; Z98.84 Bariatric surgery status; Z88.0 Allergy status to penicillin; Z88.1 Allergy status to other antibiotic agents; Z91.048 Other nonmedicinal substance allergy status
CPT/HCPCS: 46083; 99284; 96374; 93971 ×2; 73562; J1885; A9270

== ENCOUNTER → 2019-05-27 | Outpatient (CLI) | payer MEDICARE, MEDICAID ==
--- NOTE | 2019-05-27 19:16 | XCELERA REPORT ---
[address] [address] Transthoracic Echocardiogram Report Name: SANJAY SINCLAIR Age: 49 yrs Gender: Female : 1970 Patient Status: Preadmit Patient Location: SP Study Date: 05/27/2019 02:21 PM Height: 61 in Weight: 300 lb BSA: 2.2 m2 Reason For Study: MURMUR Ordering Physician: ADELIA LAM Performed By: Abdon العلي Interpretation Summary Technically poor study, incomplete LV segmental analysis, appor apical 4 chamber view, Lateral rivera not well imaged and no Biplane LVEF by machine shop repair technician attempted. Min post. pericardial effusion. Mild calcified aortic root, not enalrged. 'Mild calcified 3 cusps of AV with mild >mod (PPG37 MPG 20) with mild AR [id number] and no LV enlargement. Mild MAC with no MS, no MVP, mild MR, no LA enlargement, no B notch on AML. No LVH, hypokinetic IVS behzad basal IVS, and inferior wall, and non- visualization of basal inferolateral wall. LVEF not calculated by biplane EF, visually guestimate 55-60%, with stage I LVDD, and no LV enlargement. RH is normal, mild TR with RVSP 36mm Hg, only mild pulm hypertension. IVC is normal. MMode/2D Measurements & Calculations RVDd: 2.8 cm LVIDd: 4.8 cm FS: 32.8 % Ao root diam: 2.8 cm IVSd: 0.85 cm LVIDs: 3.2 cm EDV(Teich): 107.6 ml LVPWd: 0.77 cm ESV(Teich): 41.8 ml Ao root area: 6.2 cm2 LA dimension: 3.9 cm EF(Teich): 61.1 % LVOT diam: 2.0 cm LVOT area: 3.3 cm2 Doppler Measurements & Calculations MV E max nai: MV P1/2t max nai: Ao V2 max: AI max nai: 95.8 cm/sec 98.4 cm/sec 299.1 cm/sec 480.0 cm/sec MV A max nai: MV P1/2t: 75.7 msec Ao max PG: AI max P.0 cm/sec MVA(P1/2t): 2.9 cm2 35.8 mmHg 92.1 mmHg MV E/A: 0.83 MV dec slope: Ao V2 mean: AI dec slope: 209.6 cm/sec 260.7 cm/sec2 381.1 cm/sec2 Ao mean PG: AI P1/2t: MV dec time: 20.0 mmHg 539.2 msec 0.18 sec Ao V2 VTI: 71.6 cm JEB(I,D): 1.4 cm2 JEB(V,D): 1.3 cm2 LV V1 max PG: SV(LVOT): 103.6 ml PA V2 max: PI end-d nai: 5.8 mmHg 84.9 cm/sec 88.1 cm/sec LV V1 mean PG: PA max P.2 mmHg 2.9 mmHg LV V1 max: 120.2 cm/sec LV V1 mean: 84.9 cm/sec LV V1 VTI: 31.7 cm TR max nai: AV P1/2t-pr_phl: MV P1/2t-pr_phl: 285.6 cm/sec 539.2 msec 75.7 msec TR max P.6 mmHg I WMSI = 1.43 % Normal = 57 Segments Size X - Cannot 1 - Normal 2 - 3 - Akinetic4 - 1-2 small Interpret Hypokinetic Dyskinetic 3-5 moderate 5 - 6-14 large Aneurysmal 15-16 diffuse : ADELIA LAM Andre
== END ==
LOC: SP 13:50
PROVIDERS: ATTEND Family Medicine
DX: R01.1 Cardiac murmur, unspecified (principal)
CPT/HCPCS: 93306

== ENCOUNTER 2019-10-25 15:12 | Emergency (ER) | payer MEDICARE, MEDICAID ==
--- NOTE | 2019-10-25 17:34 | ER Document Report ---
ED General - General Chief Complaint: Shortness Of Breath Stated Complaint: SHORT OF BREATH,COUGH,NAUSEA Primary Care Provider: ADELIA LAM DO [Primary Care Provider] - Follow up as needed Mode of Arrival: Ambulatory Information source: Patient Notes: Patient is a 49-year-old female presenting to the emergency department chief complaint of shortness of breath. Patient states she did a telemedicine visit with her primary care provider 2 weeks ago, was diagnosed with strep and was prescribed some antibiotic she states she completed the antibiotic and still had the cough and it became productive she states that they placed her on another antibiotic she cannot remember the name and has taken 3 doses but still has mild shortness of breath and cough. Patient denies any obvious sick contacts but does live in a house where people smoke. Patient denies nausea vomiting diarrhea denies fever. TRAVEL OUTSIDE OF THE [place] IN LAST 30 DAYS: No - HPI Onset: Other - Patient has been having respiratory issues for 2 weeks Onset/Duration: Persistent, Waxing and waning Quality of pain: No pain Associated symptoms: Productive cough, Nausea, Shortness of breath. denies: Diarrhea, Vomiting, Sweating Exacerbated by: Movement, Walking, Coughing, Deep breathing Relieved by: Denies Similar symptoms previously: Yes Recently seen / treated by doctor: Yes - Related Data Allergies/Adverse Reactions: Penicillins Allergy (Severe, Verified 10/25/19 17:48) bacitracin [From Triple Antibiotic] Allergy (Intermediate, Verified 10/25/19 17:48) bacitracin zinc [From Triple Antibiotic] Allergy (Intermediate, Verified 10/25/19 17:48) colistimethate sodium [From Triple Antibiotic] Allergy (Intermediate, Verified 10/25/19 17:48) gramicidin D [From Triple Antibiotic] Allergy (Intermediate, Verified 10/25/19 17:48) neomycin sulfate [From Triple Antibiotic] Allergy (Intermediate, Verified 10/25/19 17:48) polymyxin B [From Triple Antibiotic] Allergy (Intermediate, Verified 10/25/19 17:48) polymyxin B sulfate [From Triple Antibiotic] Allergy (Intermediate, Verified 10/25/19 17:48) pramoxine HCl [From Triple Antibiotic] Allergy (Intermediate, Verified 10/25/19 17:48) Bleach (Sodium Hypochlorite) Allergy (Verified 10/25/19 17:48) Past Medical History - General Information source: Patient - Social History Smoking Status: Unknown if Ever Smoked Cigarette use (# per day): No Chew tobacco use (# tins/day): No Frequency of alcohol use: None Drug Abuse: None Lives with: Family Family History: Arthritis, Malignancy, CAD, CVA, DM, Hyperlipidemia, Hypertension, Thyroid Disfunction Patient has suicidal ideation: No Patient has homicidal ideation: No - Past Medical History Cardiac Medical History: Reports: Hx Hypercholesterolemia, Hx Hypertension - Had a gastric sleeve and lost 80 lbs so patient reports she no longer has. Neurological Medical History: Reports: Hx Migraine Endocrine Medical History: Reports: Hx Hypothyroidism Renal/ Medical History: Denies: Hx Peritoneal Dialysis Musculoskeletal Medical History: Reports Hx Arthritis, Reports Hx Mu sculoskeletal Deformity, Reports Hx Musculoskeletal Trauma Skin Medical History: Reports Hx Psoriasis Psychiatric Medical History: Reports: Hx Anxiety, Hx Depression Traumatic Medical History: Reports: Hx Fractures - lt ankle Past Surgical History: Reports: Hx Abdominal Surgery - gastric sleeve, Hx Section, Hx Cholecystectomy, Hx Gastric Bypass Surgery, Hx Hysterectomy, Hx Thyroid Surgery, Hx Tubal Ligation - Immunizations Immunizations up to date: Yes Hx Diphtheria, Pertussis, Tetanus Vaccination: Yes - November 2018 Review of Systems - Review of Systems Constitutional: No symptoms reported EENT: No symptoms reported Cardiovascular: No symptoms reported Respiratory: See HPI Gastrointestinal: No symptoms reported Genitourinary: No symptoms reported Female Genitourinary: No symptoms reported Musculoskeletal: No symptoms reported Skin: No symptoms reported Hematologic/Lymphatic: No symptoms reported Neurological/Psychological: No symptoms reported Physical Exam - Vital signs Vitals: Temp Pulse Resp BP Pulse Ox 98.6 F 71 20 113/68 99 10/25/19 16:15 10/25/19 16:15 10/25/19 16:15 10/25/19 16:15 10/25/19 16:15 - Notes Notes: PHYSICAL EXAMINATION: GENERAL: Well-appearing, well-nourished and in no acute distress. HEAD: Atraumatic, normocephalic. EYES: Pupils equal round and reactive to light, extraocular movements intact, sclera anicteric, conjunctiva are normal. ENT: nares patent, oropharynx clear without exudates. Moist mucous membranes. There is no erythema to the posterior pharynx. NECK: Normal range of motion, supple without lymphadenopathy, no appreciable JVD LUNGS: Lungs clear to auscultation bilaterally and equal. No wheezes rales or r honchi. However deep inspiration does cause a cough response HEART: Regular rate and rhythm without murmurs ABDOMEN: Soft, morbidly obese nontender, normal bowel sounds. No guarding, no rebound. No masses appreciated. EXTREMITIES: Active full range of motion, no pitting or edema. No cyanosis. 2+ pulses x4 NEUROLOGICAL: No focal neurological deficits. Moves all extremities spontaneously and on command. SKIN: Warm, Dry, and intact. Normal turgor, no rashes or lesions noted. Course - Re-evaluation Re-evalutation: 10/25/19 21:02 Patient has been reevaluated several times while in emergency department the patient has remained stable without decompensation. Patient will ultimately be discharged home follow-up with her primary care provider as needed. At this time there is no signs of pneumonia, pneumothorax, congestive heart failure, strep pharyngitis or any other acute abnormality needing management. Patient is recommended to continue taking medications as previously as prescribed and increase her hydration. Patient is also advised to try and get every member of the family to stop smoking or at least smoke outside to decrease irritation to her lungs. - Vital Signs Vital signs: Temp Pulse Resp BP Pulse Ox 98.6 F 71 13 155/110 H 100 10/25/19 16:15 10/25/19 16:15 10/25/19 19:19 10/25/19 19:19 10/25/19 19:19 - Laboratory Result Diagrams: 10/25/19 19:10 10/25/19 19:10 Laboratory results interpreted by me: 10/25/19 10/25/19 10/25/19 19:10 19:10 19:10 RDW 14.3 H Lymph % (Auto) 47.6 H Seg Neutrophils % 39.9 L Sodium 136.4 L NT-Pro-B Natriuret Pep 315 H Urine Blood 10/25/19 19:10 RDW Lymph % (Auto) Seg Neutrophils % Sodium NT-Pro-B Natriuret Pep Urine Blood SMALL H - Diagnostic Test Radiology reviewed: Reports reviewed - EKG Interpretation by Tx EKG shows normal: Sinus rhythm Rate: Normal Rhythm: NSR Voltage: Consistant with LVH When compared to previous EKG there are: Previous EKG unavailable Discharge - Discharge Clinical Impression: Cough Condition: Stable Disposition: HOME, SELF-CARE Additional Instructions: SHORTNESS OF BREATH OR DYSPNEA: You were evaluated for shortness of breath, or dyspnea. Dyspnea has many causes, and some are more serious than others. Sometimes it's impossible to diagnose the cause of dyspnea with the tests that are available on an emergency basis. Based on our evaluation today, you do not need hospitalization now. We found no evidence of pneumonia, collapsed lung, blood clots in the lung, tumors, or heart failure. Causes of non-specific dyspnea can include asthma or bronchospasm, hyperventilation, emotional distress, heart disease, emphysema, fibrosis of the lung, and stiffness of the chest wall. In healthy individuals with a single episode, it's sometimes reasonable to do nothing but wait to see if the problem occurs again. Additional tests used to evaluate dyspnea can include cardiac stress testing, echocardiography, pulmonary function testing, CAT scan of the chest, bronchoscopy or pulmonary biopsy. Return if shortness of breath persists or worsens, or if you develop chest pain, fever, cough, confusion, or fainting. NORMAL EXAM AND WORKUP: At this time, your examination and workup show no significant abnormality. No significant abnormal physical findings were noted. All laboratory, EKG, and imaging (x-ray, CT scans, ultrasound) studies that were ordered show no significant abnormality. Although your examination and all studies that were ordered showed no significant abnormal finding, there are no examinations and no studies that are 100% accurate. There is always the possibility that some abnormality could exist and not be detected with physical examination or within the limits and capabilities of laboratory and other studies. You should return or follow up as you were instructed on your visit today for further evaluation if your symptoms do not resolve. FOLLOW-UP CARE: If you have been referred to a physician for follow-up care, call the physicians office for an appointment as you were instructed or within the next two days. If you experience worsening or a significant change in your symptoms, notify the physician immediately or return to the Emergency Department at any time for re-evaluation. Referrals: ADELIA LAM, DO [Primary Care Provider] - Follow up as needed
--- NOTE | 2019-10-25 17:59 | RADIOLOGY REPORT (SQ) ---
EXAM DESCRIPTION: CHEST SINGLE VIEW IMAGES COMPLETED DATE/TIME: 10/25/2019 5:49 pm REASON FOR STUDY: sob COMPARISON: 05/11/2018 EXAM PARAMETERS: NUMBER OF VIEWS: One view. TECHNIQUE: Single frontal radiographic view of the chest acquired. RADIATION DOSE: NA LIMITATIONS: None. FINDINGS: LUNGS AND PLEURA: No opacities, masses or pneumothorax. No pleural effusion. MEDIASTINUM AND HILAR STRUCTURES: No masses. Contour normal. HEART AND VASCULAR STRUCTURES: Heart normal in size. Normal vasculature. BONES: No acute findings. HARDWARE: None in the chest. OTHER: No other significant finding. IMPRESSION: NO ACUTE RADIOGRAPHIC FINDING IN THE CHEST. TECHNICAL DOCUMENTATION: JOB ID: [id number] 2010 [employer]- All Rights Reserved Reading location - IP/workstation name: [email or web address]
[2019-10-25 20:08] LABS: ABSOLUTE EOSINOPHILS # (AUTO) 0.2 10^3/uL (0.0-0.6); ABSOLUTE LYMPHOCYTES (AUTO) 2.7 10^3/uL (0.5-4.7); ABSOLUTE MONOCYTES (AUTO) 0.5 10^3/uL (0.1-1.4); ABSOLUTE NEUT (AUTO) 2.3 10^3/uL (1.7-8.2); BASOPHILS % (AUTO) 0.8 % (0-2); EOSINOPHILS % (AUTO) 3.5 % (0-6); HEMATOCRIT 42.3 % (36.0-47.0); HEMOGLOBIN 14.4 g/dL (12.0-15.5); LYMPHOCYTES % (AUTO) 47.6 % (13-45); MEAN CORPUSCULAR HEMOGLOBIN 30.9 pg (27.0-33.4); MEAN CORPUSCULAR HGB CONC 33.9 g/dL (32.0-36.0); MEAN CORPUSCULAR VOLUME 91 fl (80-97); MONOCYTES % (AUTO) 8.2 % (3-13); PLATELET COUNT 225 10^3/uL (150-450); RED BLOOD COUNT 4.64 10^6/uL (3.72-5.28); RED CELL DISTRIBUTION WIDTH 14.3 % (11.5-14.0); SEGMENTED NEUTROPHILS % (AUTO) 39.9 % (42-78); TOTAL CELLS COUNTED % (AUTO) 100 %; WHITE BLOOD COUNT 5.7 10^3/uL (4.0-10.5)
[2019-10-25 20:24] LABS: ALBUMIN 4.3 g/dL (3.5-5.0); ALKALINE PHOSPHATASE 91 U/L (38-126); ANION GAP 7 (5-19); ASPARTATE AMINO TRANSFERASE 22 U/L (14-36); BILIRUBIN,TOTAL 0.6 mg/dL (0.2-1.3); BLOOD UREA NITROGEN 14 mg/dL (7-20); CALCIUM 9.6 mg/dL (8.4-10.2); CARBON DIOXIDE 24 mmol/L (22-30); CHLORIDE 105 mmol/L (98-107); CREATINE KINASE 33 U/L (30-135); GLUCOSE 79 mg/dL (75-110); POTASSIUM 4.5 mmol/L (3.6-5.0); TOTAL PROTEIN 7.7 g/dL (6.3-8.2)
[2019-10-25 20:32] LABS: APPEARANCE,URINE SLIGHTLY-CLOUDY; BILIRUBIN,URINE NEGATIVE (NEGATIVE); COLOR,URINE YELLOW; GLUCOSE, URINE NEGATIVE (NEGATIVE); KETONES,URINE NEGATIVE (NEGATIVE); LEUKOCYTE ESTERASE,URINE NEGATIVE (NEGATIVE); NITRITE,URINE NEGATIVE (NEGATIVE); PROTEIN,URINE NEGATIVE (NEGATIVE); URINE SPECIFIC GRAVITY 1.012; UROBILINOGEN,URINE NEGATIVE mg/dL (<2.0)
[2019-10-25 20:36] LABS: NT PRO BNP 315 pg/mL (<125)
[2019-10-25 20:41] LABS: TROPONIN I < 0.012 ng/mL
[2019-10-25 21:13] VITALS: BP 173/105
--- NOTE | 2019-10-26 09:48 | EKG REPORT ---
SEVERITY:- BORDERLINE ECG - SINUS RHYTHM LVH BY VOLTAGE NONSPECIFIC ST-T CHANGES- INFERIOR LEADS : Confirmed by: Med Wesley MD 26-Oct-2019 09:47:23
== END 2019-10-25 21:13 | disposition home or self-care (01) ==
LOC: ER 15:12
DX: R06.02 Shortness of breath (principal); R05 Cough; R11.0 Nausea; E78.00 Pure hypercholesterolemia, unspecified; I10 Essential (primary) hypertension; Z88.0 Allergy status to penicillin; Z98.84 Bariatric surgery status
CPT/HCPCS: 36415; 71045; 80053; 81001; 82550; 83880; 84484; 85025; 87040; 87077; 87186; 93005; 93010; 99284